=== PATIENT | male | born 1965 | race Caucasian/White ===

== ENCOUNTER 2020-05-03 13:29 | Inpatient (IN) ==
[2020-05-03 13:55] LABS: Basophils % 0.4 %; Eosinophils # 0.1 K/mcL (0.0-0.6); Eosinophils % 0.8 %; Hematocrit 40.1 % (37.5-50.1); Hemoglobin 12.4 g/dL (12.9-16.9); Immature Granulocytes % 0.6 % (0-4); Lymphocytes # 0.9 K/mcL (0.6-4.6); Lymphocytes % 8.6 %; Mean Corpuscular HGB Conc 30.9 g/dL (31.6-35.5); Mean Corpuscular Hemoglobin 27.1 pg (28.0-33.3); Mean Corpuscular Volume 87.7 fL (83.0-100.0); Mean Platelet Volume 9.9 fL (9.4-12.4); Monocytes # 0.6 K/mcL (0.0-1.3); Monocytes % 5.6 %; Neutrophils # 8.3 K/mcL (1.6-8.9); Platelet Count 250 K/mcL (140-400); Red Blood Count 4.57 M/mcL (4.19-5.50); Red Cell Distribution Width 15.9 % (11.5-14.5); White Blood Count 9.9 K/mcL (4.3-11.1)
[2020-05-03 14:00] LABS: INR 1.7; Prothrombin Time 19.1 Seconds (9.4-12.1)
[2020-05-03] MEDS ORDERED: Nitroglycerin 1 INCH/GM PACKET TP ONE (14:08)
[2020-05-03 14:31] LABS: Alanine Aminotransferase 25 Units/L (7-52); Albumin 3.6 g/dL (3.5-5.7); Albumin/Globulin Ratio 1.1 (1.1-2.2); Alkaline Phosphatase 88 Units/L (34-104); Aspartate Amino Transferase 14 Units/L (13-39); BUN/Creatinine Ratio 24 (6-26); Bilirubin,Direct 0.1 mg/dL (0.0-0.2); Bilirubin,Indirect 0.2 mg/dL (0.0-1.0); Bilirubin,Total 0.3 mg/dL (0.3-1.0); Blood Urea Nitrogen 28 mg/dL (6-20); Calcium 8.8 mg/dL (8.6-10.3); Carbon Dioxide 29 mEq/L (23-29); Chloride 100 mEq/L (98-107); Globulin 3.2 g/dL (2.4-3.5); Glucose 202 mg/dL (70-105); Osmolality,Calculated 295 (280-300); Potassium 4.2 mEq/L (3.5-5.1); Sodium 137 mEq/L (136-145); Total Protein 6.8 g/dL (6.4-8.9); Troponin I < 0.03 ng/mL (< 0.04); eGFR For African Americans > 60 (> 60); eGFR For Non-African Americans > 60 (> 60)
[2020-05-03] MEDS ORDERED: Furosemide 40 MG/4 ML VIAL IVP ONE ×2 (14:33→18:00)
[2020-05-03] MEDS ORDERED: Naloxone 0.4 MG/ML INJ IVP PRN (15:47)
[2020-05-03] MEDS ORDERED: Dextrose Gel 15 GM/37.5 ML TUBE PO PRN ×2 (16:54)
[2020-05-03] MEDS ORDERED: *HR* Dextrose 50 % in Water (Vial) 50 ML VIAL IVP PRN (16:54)
[2020-05-03] MEDS ORDERED: D5% in Water 1,000 ML IVC PRN (16:54)
[2020-05-03] MEDS ORDERED: *HR* Warfarin 10 MG TABLET PO SCH (18:00)
[2020-05-03] MEDS: Insulin LISPRO 300 UNITS/3 ML VIAL SQ SCH (20:02)
[2020-05-03] MEDS: cloNIDine HCL 0.1 MG TABLET PO SCH (20:02)
[2020-05-03] MEDS: Budesonide/Formoterol 160/4.5 1 PUFF INH IH SCH (20:05)
[2020-05-04 03:57] LABS: Basophils % 0.4 %; Eosinophils # 0.2 K/mcL (0.0-0.6); Eosinophils % 1.8 %; Hematocrit 40.3 % (37.5-50.1); Hemoglobin 12.6 g/dL (12.9-16.9); Immature Granulocytes % 0.5 % (0-4); Lymphocytes # 1.1 K/mcL (0.6-4.6); Mean Corpuscular HGB Conc 31.3 g/dL (31.6-35.5); Mean Corpuscular Hemoglobin 27.2 pg (28.0-33.3); Mean Platelet Volume 9.8 fL (9.4-12.4); Monocytes # 0.7 K/mcL (0.0-1.3); Monocytes % 7.8 %; Neutrophils # 7.1 K/mcL (1.6-8.9); Platelet Count 256 K/mcL (140-400); Red Blood Count 4.63 M/mcL (4.19-5.50); Red Cell Distribution Width 16.1 % (11.5-14.5); Segmented Neutrophils % 77.5 %; White Blood Count 9.2 K/mcL (4.3-11.1)
[2020-05-04 04:16] LABS: BUN/Creatinine Ratio 22 (6-26); Blood Urea Nitrogen 29 mg/dL (6-20); Calcium 8.9 mg/dL (8.6-10.3); Carbon Dioxide 31 mEq/L (23-29); Chloride 100 mEq/L (98-107); Glucose 214 mg/dL (70-105); Osmolality,Calculated 298 (280-300); Potassium 3.9 mEq/L (3.5-5.1); Sodium 138 mEq/L (136-145); eGFR For African Americans > 60 (> 60); eGFR For Non-African Americans 57 (> 60)
[2020-05-04] MEDS: Budesonide/Formoterol 160/4.5 1 PUFF INH IH SCH ×2 (07:28→20:24)
[2020-05-04] MEDS: Insulin LISPRO 300 UNITS/3 ML VIAL SQ SCH ×4 (08:03→20:37)
[2020-05-04] MEDS: cloNIDine HCL 0.1 MG TABLET PO SCH ×2 (08:03→20:37)
[2020-05-04] MEDS ORDERED: Furosemide 40 MG/4 ML VIAL IVP SCH (09:00)
[2020-05-04 10:41] LABS: INR 1.8; Prothrombin Time 20.8 Seconds (9.4-12.1)
[2020-05-04] MEDS: Furosemide 40 MG/4 ML VIAL IVP SCH (16:18)
[2020-05-04] MEDS ORDERED: *HR* Warfarin 4 MG TABLET PO ONE (18:00)
[2020-05-04] MEDS ORDERED: Anticoagulation Consult 1 Each MC ONE (18:00)
[2020-05-04] MEDS ORDERED: Warfarin perPT PO PRN (18:00)
[2020-05-05 02:25] LABS: Prothrombin Time 22.4 Seconds (9.4-12.1)
[2020-05-05 02:41] LABS: BUN/Creatinine Ratio 25 (6-26); Blood Urea Nitrogen 35 mg/dL (6-20); Calcium 8.4 mg/dL (8.6-10.3); Carbon Dioxide 30 mEq/L (23-29); Chloride 102 mEq/L (98-107); Glucose 165 mg/dL (70-105); Osmolality,Calculated 302 (280-300); Potassium 3.8 mEq/L (3.5-5.1); Sodium 140 mEq/L (136-145); eGFR For African Americans > 60 (> 60); eGFR For Non-African Americans 52 (> 60)
[2020-05-05] MEDS: cloNIDine HCL 0.1 MG TABLET PO SCH ×2 (07:43→22:01)
[2020-05-05] MEDS: Furosemide 40 MG/4 ML VIAL IVP SCH ×2 (07:43→17:30)
[2020-05-05] MEDS: Insulin LISPRO 300 UNITS/3 ML VIAL SQ SCH ×4 (07:43→22:03)
[2020-05-05] MEDS: Budesonide/Formoterol 160/4.5 1 PUFF INH IH SCH ×2 (08:00→22:30)
[2020-05-05] MEDS ORDERED: Perflutren Lipid Microsphere 1.3 ML in 0.9 % Sodium Chloride 8.7 ML IVP ONE ×2 (09:31→20:52)
[2020-05-05] MEDS ORDERED: *HR* Warfarin 10 MG TABLET PO ONE (18:00)
[2020-05-06 06:17] LABS: INR 2.2; Prothrombin Time 24.7 Seconds (9.4-12.1)
[2020-05-06 06:24] LABS: Calcium 8.8 mg/dL (8.6-10.3); Potassium 3.9 mEq/L (3.5-5.1)
[2020-05-06] MEDS: cloNIDine HCL 0.1 MG TABLET PO SCH (07:20)
[2020-05-06] MEDS: Insulin LISPRO 300 UNITS/3 ML VIAL SQ SCH ×2 (07:21→11:57)
[2020-05-06] MEDS: Furosemide 40 MG/4 ML VIAL IVP SCH (07:21)
[2020-05-06] MEDS: Budesonide/Formoterol 160/4.5 1 PUFF INH IH SCH (08:03)
[2020-05-06] MEDS ORDERED: amLODIPine 5 MG TABLET PO SCH (09:00)
[2020-05-06] MEDS ORDERED: Tiotropium 18 MCG inhalation IH SCH (10:00)
[2020-05-06 11:07] VITALS: BP 171/91
[2020-05-06] MEDS ORDERED: *HR* Warfarin 10 MG TABLET PO ONE (18:00)
== END 2020-05-06 16:03 | disposition home or self-care (01) | DRG 291 ==
LOC: 2ANU 13:29 → EMEROOARM 13:29 → SUATTDRO 17:30 → 2ANU 17:55
PROVIDERS: ADMIT Internal Medicine; ATTEND Internal Medicine

== ENCOUNTER 2021-04-29 22:10 | Inpatient (IN) ==
[2021-04-29] MEDS ORDERED: Isovue-370 500 ML BOTTLE IVP ONE (23:06)
[2021-04-29] MEDS ORDERED: Furosemide 40 MG/4 ML VIAL IVP ONE (23:07)
[2021-04-29] MEDS ORDERED: methylPREDNISolone 125 MG/2 ML VIAL IVP ONE (23:07)
[2021-04-29] MEDS ORDERED: Ipratropium/Albuterol Neb 3 ML ONE (23:30)
[2021-04-29] MEDS: Ipratropium/Albuterol Neb 3 ML IH ONE ×2 (23:33→23:35)
[2021-04-30 00:52] LABS: Basophils # 0.1 K/mcL (0.0-0.2); Basophils % 0.6 %; Eosinophils # 0.1 K/mcL (0.0-0.6); Eosinophils % 1.2 %; Hemoglobin 11.6 g/dL (12.9-16.9); Immature Granulocytes % 0.7 % (0-4); Lymphocytes # 1.4 K/mcL (0.6-4.6); Lymphocytes % 12.4 %; Mean Corpuscular HGB Conc 30.5 g/dL (31.6-35.5); Mean Corpuscular Hemoglobin 26.3 pg (28.0-33.3); Mean Corpuscular Volume 86.2 fL (83.0-100.0); Mean Platelet Volume 9.8 fL (9.4-12.4); Monocytes # 0.8 K/mcL (0.0-1.3); Monocytes % 6.9 %; Platelet Count 308 K/mcL (140-400); Red Blood Count 4.41 M/mcL (4.19-5.50); Red Cell Distribution Width 16.2 % (11.5-14.5); Segmented Neutrophils % 78.2 %; White Blood Count 11.6 K/mcL (4.3-11.1)
[2021-04-30 00:59] LABS: INR 2.1; Prothrombin Time 24.1 Seconds (9.4-12.1)
[2021-04-30 01:01] LABS: BUN/Creatinine Ratio 24 (6-26); Blood Urea Nitrogen 39 mg/dL (6-20); Carbon Dioxide 25 mEq/L (23-29); Chloride 102 mEq/L (98-107); Glucose 200 mg/dL (70-105); Osmolality,Calculated 305 (280-300); Potassium 4.2 mEq/L (3.5-5.1); Sodium 140 mEq/L (136-145); eGFR For African Americans 54 (> 60); eGFR For Non-African Americans 44 (> 60)
[2021-04-30 01:02] LABS: Troponin I < 0.03 ng/mL (< 0.04)
[2021-04-30] MEDS ORDERED: Azithromycin 500 MG in 0.9 % Sodium Chloride 250 ML IVPB STA (02:51)
[2021-04-30] MEDS ORDERED: Perflutren Lipid Microsphere 1.3 ML in 0.9 % Sodium Chloride 8.7 ML IVP PRN (04:53)
[2021-04-30] MEDS ORDERED: Albuterol 2.5 MG/3 ML NEBULIZER IH PRN (04:58)
[2021-04-30] MEDS ORDERED: Ondansetron 4 MG/2 ML VIAL IVP PRN (05:04)
[2021-04-30] MEDS ORDERED: Acetaminophen 325 MG TABLET PO PRN (05:04)
[2021-04-30] MEDS ORDERED: Melatonin 3 MG TABLET PO PRN (05:04)
[2021-04-30] MEDS ORDERED: Naloxone 0.4 MG/ML INJ IVP PRN (05:04)
[2021-04-30] MEDS ORDERED: D5% in Water 1,000 ML IVC PRN (05:07)
[2021-04-30] MEDS ORDERED: *HR* Dextrose 50 % in Water (Vial) 50 ML VIAL IVP PRN (05:07)
[2021-04-30] MEDS ORDERED: Dextrose Gel 15 GM/37.5 ML TUBE PO PRN ×2 (05:07)
[2021-04-30] MEDS ORDERED: Albuterol 2.5 MG/3 ML NEBULIZER IH SCH (08:00)
[2021-04-30] MEDS: amLODIPine 5 MG TABLET PO SCH (08:56)
[2021-04-30] MEDS: predniSONE 20 MG TABLET PO SCH (08:56)
[2021-04-30] MEDS: Furosemide 40 MG/4 ML VIAL IVP SCH (08:56)
[2021-04-30] MEDS: Azithromycin 250 MG TABLET PO SCH (08:56)
[2021-04-30] MEDS: Insulin LISPRO 300 UNITS/3 ML VIAL SUBQ SCH ×3 (09:47→16:38)
[2021-04-30] MEDS: Ipratropium/Albuterol Neb 3 ML IH SCH ×3 (11:47→20:28)
[2021-04-30] MEDS ORDERED: lisinopriL 20 MG TABLET PO SCH (15:30)
[2021-04-30] MEDS ORDERED: Warfarin perPT PO PRN (18:00)
[2021-04-30] MEDS ORDERED: *HR* Warfarin 10 MG TABLET PO ONE (18:00)
[2021-04-30] MEDS: Budesonide/Formoterol 160/4.5 1 PUFF INH IH SCH (20:27)
[2021-04-30] MEDS ORDERED: Insulin LISPRO 300 UNITS/3 ML VIAL SUBQ SCH (21:00)
[2021-04-30] MEDS ORDERED: *HR* Metoprolol 5 MG/5 ML VIAL IVP ONE (23:57)
[2021-05-01 02:15] LABS: Basophils % 0.1 %; Hematocrit 38.2 % (37.5-50.1); Immature Granulocytes % 0.9 % (0-4); Lymphocytes # 0.9 K/mcL (0.6-4.6); Lymphocytes % 6.5 %; Mean Corpuscular HGB Conc 31.4 g/dL (31.6-35.5); Mean Corpuscular Hemoglobin 26.5 pg (28.0-33.3); Mean Corpuscular Volume 84.3 fL (83.0-100.0); Mean Platelet Volume 10.4 fL (9.4-12.4); Monocytes # 1.1 K/mcL (0.0-1.3); Monocytes % 7.5 %; Platelet Count 325 K/mcL (140-400); Red Blood Count 4.53 M/mcL (4.19-5.50); Red Cell Distribution Width 16.1 % (11.5-14.5); White Blood Count 14.1 K/mcL (4.3-11.1)
[2021-05-01 02:37] LABS: Potassium 4.2 mEq/L (3.5-5.1)
[2021-05-01] MEDS: Ipratropium/Albuterol Neb 3 ML IH SCH ×4 (03:41→22:54)
[2021-05-01] MEDS: Insulin LISPRO 300 UNITS/3 ML VIAL SUBQ SCH ×5 (07:49→20:21)
[2021-05-01] MEDS: Azithromycin 250 MG TABLET PO SCH (07:50)
[2021-05-01] MEDS: Furosemide 40 MG/4 ML VIAL IVP SCH (07:50)
[2021-05-01] MEDS: amLODIPine 5 MG TABLET PO SCH (07:50)
[2021-05-01] MEDS: predniSONE 20 MG TABLET PO SCH (07:50)
[2021-05-01] MEDS: Multivit/Ca/Min/Fe/FA 1 TAB TABLET PO SCH (07:50)
[2021-05-01] MEDS: DilTIAZem CD (24hr) 120 MG CAP.ER.24H PO SCH (07:50)
[2021-05-01] MEDS ORDERED: NON-FORMULARY MEDICATION 1 EACH EACH (Amlodipine Besylate/Benazepril [Amlodipine-Benazepri PO SCH (09:00)
[2021-05-01] MEDS: Budesonide/Formoterol 160/4.5 1 PUFF INH IH SCH ×2 (09:46→22:54)
[2021-05-01] MEDS ORDERED: *HR* Warfarin 10 MG TABLET PO ONE (18:00)
[2021-05-02] MEDS: Ipratropium/Albuterol Neb 3 ML IH SCH ×4 (04:18→22:13)
[2021-05-02 04:42] LABS: Basophils # 0.1 K/mcL (0.0-0.2); Basophils % 0.4 %; Eosinophils # 0.3 K/mcL (0.0-0.6); Eosinophils % 2.7 %; Hematocrit 38.2 % (37.5-50.1); Hemoglobin 12.2 g/dL (12.9-16.9); Immature Granulocytes % 0.5 % (0-4); Lymphocytes # 1.7 K/mcL (0.6-4.6); Lymphocytes % 13.5 %; Mean Corpuscular HGB Conc 31.9 g/dL (31.6-35.5); Mean Corpuscular Hemoglobin 26.8 pg (28.0-33.3); Mean Platelet Volume 9.8 fL (9.4-12.4); Monocytes % 7.9 %; Neutrophils # 9.5 K/mcL (1.6-8.9); Platelet Count 330 K/mcL (140-400); Red Blood Count 4.55 M/mcL (4.19-5.50); Red Cell Distribution Width 16.5 % (11.5-14.5); White Blood Count 12.6 K/mcL (4.3-11.1)
[2021-05-02 04:52] LABS: INR 2.3; Prothrombin Time 25.9 Seconds (9.4-12.1)
[2021-05-02 05:03] LABS: Albumin 3.5 g/dL (3.5-5.7); Calcium 8.9 mg/dL (8.6-10.3); Magnesium 2.3 mg/dL (1.6-2.6); Phosphorous 4.8 mg/dL (2.7-4.5)
[2021-05-02 07:12] LABS: Estimated Average Glucose 177 mg/dl; Hemoglobin A1C 7.8 %
[2021-05-02] MEDS: Azithromycin 250 MG TABLET PO SCH (08:22)
[2021-05-02] MEDS: Multivit/Ca/Min/Fe/FA 1 TAB TABLET PO SCH (08:23)
[2021-05-02] MEDS: amLODIPine 5 MG TABLET PO SCH (08:23)
[2021-05-02] MEDS: DilTIAZem CD (24hr) 120 MG CAP.ER.24H PO SCH (08:23)
[2021-05-02] MEDS: predniSONE 20 MG TABLET PO SCH (08:23)
[2021-05-02] MEDS: Insulin LISPRO 300 UNITS/3 ML VIAL SUBQ SCH ×4 (08:26→23:25)
[2021-05-02] MEDS: Budesonide/Formoterol 160/4.5 1 PUFF INH IH SCH ×2 (09:21→22:13)
[2021-05-02] MEDS ORDERED: 0.9 % Sodium Chloride 1,000 ML IVC SCH (14:45)
[2021-05-02] MEDS ORDERED: *HR* Warfarin 10 MG TABLET PO ONE (18:00)
[2021-05-02] MEDS: Insulin DETEMIR 100 UNIT/ML X5UNITS SUBQ SCH (23:24)
[2021-05-03] MEDS: Ipratropium/Albuterol Neb 3 ML IH SCH ×4 (04:36→21:59)
[2021-05-03 06:05] LABS: INR 2.2; Prothrombin Time 25.4 Seconds (9.4-12.1)
[2021-05-03 06:20] LABS: Calcium 8.6 mg/dL (8.6-10.3); Potassium 3.8 mEq/L (3.5-5.1)
[2021-05-03] MEDS: DilTIAZem CD (24hr) 120 MG CAP.ER.24H PO SCH (08:14)
[2021-05-03] MEDS: amLODIPine 5 MG TABLET PO SCH (08:14)
[2021-05-03] MEDS: Azithromycin 250 MG TABLET PO SCH (08:14)
[2021-05-03] MEDS: Multivit/Ca/Min/Fe/FA 1 TAB TABLET PO SCH (08:14)
[2021-05-03] MEDS: predniSONE 20 MG TABLET PO SCH (08:15)
[2021-05-03] MEDS: Insulin LISPRO 300 UNITS/3 ML VIAL SUBQ SCH ×4 (08:17→20:44)
[2021-05-03] MEDS: Budesonide/Formoterol 160/4.5 1 PUFF INH IH SCH ×2 (10:48→21:59)
[2021-05-03] MEDS ORDERED: *HR* Warfarin 5 MG TABLET PO ONE (18:00)
[2021-05-03] MEDS ORDERED: *HR* Metoprolol 5 MG/5 ML VIAL IVP ONE ×3 (18:39→21:29)
[2021-05-03] MEDS: Insulin DETEMIR 100 UNIT/ML X5UNITS SUBQ SCH (20:44)
[2021-05-04] MEDS ORDERED: *HR* Metoprolol 5 MG/5 ML VIAL IVP ONE ×2 (01:19→04:10)
[2021-05-04] MEDS: Ipratropium/Albuterol Neb 3 ML IH SCH ×2 (04:12→09:52)
[2021-05-04] MEDS: amLODIPine 5 MG TABLET PO SCH (07:37)
[2021-05-04] MEDS: Multivit/Ca/Min/Fe/FA 1 TAB TABLET PO SCH (07:37)
[2021-05-04] MEDS: DilTIAZem CD (24hr) 120 MG CAP.ER.24H PO SCH (07:38)
[2021-05-04] MEDS: Azithromycin 250 MG TABLET PO SCH (07:38)
[2021-05-04] MEDS: predniSONE 20 MG TABLET PO SCH (07:38)
[2021-05-04] MEDS: Insulin LISPRO 300 UNITS/3 ML VIAL SUBQ SCH ×4 (07:39→21:38)
[2021-05-04] MEDS: Budesonide/Formoterol 160/4.5 1 PUFF INH IH SCH ×2 (09:52→20:16)
[2021-05-04 10:21] LABS: Basophils % 0.3 %; Eosinophils % 8.7 %; Hematocrit 43.2 % (37.5-50.1); Hemoglobin 13.6 g/dL (12.9-16.9); Immature Granulocytes % 0.5 % (0-4); Lymphocytes # 0.7 K/mcL (0.6-4.6); Lymphocytes % 6.3 %; Mean Corpuscular HGB Conc 31.5 g/dL (31.6-35.5); Mean Corpuscular Hemoglobin 26.8 pg (28.0-33.3); Mean Corpuscular Volume 85.2 fL (83.0-100.0); Mean Platelet Volume 9.5 fL (9.4-12.4); Monocytes # 0.5 K/mcL (0.0-1.3); Monocytes % 4.4 %; Neutrophils # 9.4 K/mcL (1.6-8.9); Platelet Count 320 K/mcL (140-400); Red Blood Count 5.07 M/mcL (4.19-5.50); Red Cell Distribution Width 16.5 % (11.5-14.5); Segmented Neutrophils % 79.8 %; White Blood Count 11.8 K/mcL (4.3-11.1)
[2021-05-04 10:27] LABS: INR 2.1; Prothrombin Time 24.3 Seconds (9.4-12.1)
[2021-05-04 10:40] LABS: Calcium 8.8 mg/dL (8.6-10.3); Potassium 4.2 mEq/L (3.5-5.1)
[2021-05-04] MEDS ORDERED: Ipratropium/Albuterol Neb 3 ML IH PRN (13:06)
[2021-05-04] MEDS: Metoprolol XL (24 HR) Succ 25 MG TAB.ER.24H PO SCH ×2 (15:30→21:38)
[2021-05-04] MEDS ORDERED: Furosemide 40 MG TABLET PO SCH (17:00)
[2021-05-04] MEDS ORDERED: *HR* Warfarin 10 MG TABLET PO ONE (18:00)
[2021-05-04] MEDS ORDERED: Metoprolol XL (24 HR) Succ 25 MG TAB.ER.24H PO SCH (21:00)
[2021-05-04] MEDS: Insulin DETEMIR 100 UNIT/ML X5UNITS SUBQ SCH (21:39)
[2021-05-05 02:03] LABS: Prothrombin Time 22.6 Seconds (9.4-12.1)
[2021-05-05] MEDS: Budesonide/Formoterol 160/4.5 1 PUFF INH IH SCH (07:49)
[2021-05-05] MEDS: Insulin LISPRO 300 UNITS/3 ML VIAL SUBQ SCH (07:49)
[2021-05-05] MEDS: DilTIAZem CD (24hr) 120 MG CAP.ER.24H PO SCH (08:09)
[2021-05-05] MEDS: Metoprolol XL (24 HR) Succ 25 MG TAB.ER.24H PO SCH (08:09)
[2021-05-05] MEDS: amLODIPine 5 MG TABLET PO SCH (08:10)
[2021-05-05] MEDS: Multivit/Ca/Min/Fe/FA 1 TAB TABLET PO SCH (08:10)
[2021-05-05] MEDS ORDERED: predniSONE 20 MG TABLET PO SCH (09:00)
[2021-05-05 10:14] VITALS: BP 159/88
== END 2021-05-05 11:07 | disposition home or self-care (01) | DRG 291 ==
LOC: EMEROOARM 22:10 → 3BNU 22:10 → SUATTDRO 04-30 02:56 → 3BNU 04-30 03:28 → SUATTDRO 05-02 14:35
PROVIDERS: ADMIT Family Medicine; ATTEND Nurse Practitioner

== ENCOUNTER 2021-06-26 18:52 | Inpatient (IN) ==
[2021-06-26 21:42] LABS: Basophils % 0.3 %; Hematocrit 38.8 % (37.5-50.1); Hemoglobin 12.2 g/dL (12.9-16.9); Immature Granulocytes % 0.9 % (0-4); Lymphocytes # 0.7 K/mcL (0.6-4.6); Lymphocytes % 10.2 %; Mean Corpuscular HGB Conc 31.4 g/dL (31.6-35.5); Mean Corpuscular Volume 82.7 fL (83.0-100.0); Monocytes # 0.7 K/mcL (0.0-1.3); Monocytes % 10.1 %; Neutrophils # 5.4 K/mcL (1.6-8.9); Platelet Count 272 K/mcL (140-400); Red Blood Count 4.69 M/mcL (4.19-5.50); Red Cell Distribution Width 16.4 % (11.5-14.5); Segmented Neutrophils % 78.5 %; White Blood Count 6.8 K/mcL (4.3-11.1)
[2021-06-26 21:58] LABS: BUN/Creatinine Ratio 33 (6-26); Blood Urea Nitrogen 48 mg/dL (6-20); Calcium 8.9 mg/dL (8.6-10.3); Carbon Dioxide 27 mEq/L (23-29); Chloride 100 mEq/L (98-107); Glucose 309 mg/dL (70-105); Osmolality,Calculated 306 (280-300); Sodium 136 mEq/L (136-145); eGFR For African Americans > 60 (> 60); eGFR For Non-African Americans 50 (> 60)
[2021-06-26] MEDS ORDERED: Isovue-370 500 ML BOTTLE IVP ONE (23:35)
[2021-06-27] MEDS ORDERED: Naloxone 0.4 MG/ML INJ IVP PRN (02:30)
[2021-06-27] MEDS ORDERED: Ondansetron 4 MG/2 ML VIAL IVP PRN (02:30)
[2021-06-27] MEDS ORDERED: Melatonin 3 MG TABLET PO PRN (02:30)
[2021-06-27] MEDS ORDERED: *HR* HYDROcodone/Acet 5/325 mg TABLET PO PRN (02:30)
[2021-06-27] MEDS ORDERED: Dextrose Gel 15 GM/37.5 ML TUBE PO PRN ×2 (02:35)
[2021-06-27] MEDS ORDERED: *HR* Dextrose 50 % in Water (Vial) 50 ML VIAL IVP PRN (02:35)
[2021-06-27] MEDS ORDERED: D5% in Water 1,000 ML IVC PRN (02:35)
[2021-06-27 05:14] LABS: Basophils % 0.3 %; Eosinophils % 0.1 %; Hematocrit 38.1 % (37.5-50.1); Hemoglobin 11.8 g/dL (12.9-16.9); Immature Granulocytes % 0.7 % (0-4); Lymphocytes % 11.1 %; Mean Corpuscular Hemoglobin 25.9 pg (28.0-33.3); Mean Corpuscular Volume 83.7 fL (83.0-100.0); Mean Platelet Volume 9.8 fL (9.4-12.4); Monocytes # 0.8 K/mcL (0.0-1.3); Monocytes % 9.4 %; Neutrophils # 6.8 K/mcL (1.6-8.9); Platelet Count 270 K/mcL (140-400); Red Blood Count 4.55 M/mcL (4.19-5.50); Red Cell Distribution Width 16.3 % (11.5-14.5); Segmented Neutrophils % 78.4 %; White Blood Count 8.6 K/mcL (4.3-11.1)
[2021-06-27 05:23] LABS: Fibrinogen 501 mg/dL (169-393); INR 2.2; Prothrombin Time 25.4 Seconds (9.4-12.1)
[2021-06-27 05:24] LABS: D-Dimer < 215 ng/mLFEU (0-500)
[2021-06-27 05:53] LABS: Alanine Aminotransferase 32 Units/L (7-52); Albumin 3.3 g/dL (3.5-5.7); Albumin/Globulin Ratio 1.3 (1.1-2.2); Alkaline Phosphatase 68 Units/L (34-104); Aspartate Amino Transferase 18 Units/L (13-39); BUN/Creatinine Ratio 30 (6-26); Bilirubin,Total 0.2 mg/dL (0.3-1.0); Blood Urea Nitrogen 43 mg/dL (6-20); C-Reactive Protein 21 mg/L (Less than 10); Calcium 8.9 mg/dL (8.6-10.3); Carbon Dioxide 32 mEq/L (23-29); Chloride 100 mEq/L (98-107); Globulin 2.6 g/dL (2.4-3.5); Glucose 151 mg/dL (70-105); Lactate Dehydrogenase 141 Units/L (140-271); Magnesium 1.6 mg/dL (1.6-2.6); Osmolality,Calculated 302 (280-300); Phosphorous 4.3 mg/dL (2.7-4.5); Potassium 3.7 mEq/L (3.5-5.1); Sodium 139 mEq/L (136-145); Total Protein 5.9 g/dL (6.4-8.9); eGFR For African Americans > 60 (> 60); eGFR For Non-African Americans 51 (> 60)
[2021-06-27 06:08] LABS: Ferritin 58 ng/mL (20-250)
[2021-06-27] MEDS: Metoprolol XL (24 HR) Succ 25 MG TAB.ER.24H PO SCH ×2 (08:00→20:36)
[2021-06-27] MEDS: DilTIAZem CD (24hr) 120 MG CAP.ER.24H PO SCH (08:00)
[2021-06-27] MEDS: Insulin LISPRO 300 UNITS/3 ML VIAL SUBQ SCH ×4 (08:01→20:39)
[2021-06-27] MEDS: Roflumilast [Daliresp] 500 MCG PO SCH (08:01)
[2021-06-27] MEDS: Budesonide/Formoterol 160/4.5 1 PUFF INH IH SCH ×2 (08:16→21:40)
[2021-06-27] MEDS: Tiotropium 10 INH DOSE IH SCH (08:16)
[2021-06-27] MEDS ORDERED: Remdesivir 200 MG in 0.9 % Sodium Chloride 100 ML IVPB ONE (11:22)
[2021-06-27] MEDS: amLODIPine 5 MG TABLET PO SCH (13:17)
[2021-06-27] MEDS ORDERED: *HR* Warfarin 5 MG TABLET PO ONE (18:00)
[2021-06-27] MEDS ORDERED: Warfarin perPT PO PRN (18:00)
[2021-06-27] MEDS: Insulin DETEMIR 100 UNIT/ML X5UNITS SUBQ SCH (20:36)
[2021-06-28] MEDS ORDERED: Furosemide 40 MG/4 ML VIAL IVP ONE (05:01)
[2021-06-28 06:49] LABS: INR 2.2; Prothrombin Time 24.7 Seconds (9.4-12.1)
[2021-06-28] MEDS: Metoprolol XL (24 HR) Succ 25 MG TAB.ER.24H PO SCH (07:26)
[2021-06-28] MEDS: lisinopriL 20 MG TABLET PO SCH (07:26)
[2021-06-28] MEDS: Insulin LISPRO 300 UNITS/3 ML VIAL SUBQ SCH ×4 (07:26→21:30)
[2021-06-28] MEDS: Furosemide 40 MG TABLET PO SCH (07:27)
[2021-06-28] MEDS: amLODIPine 5 MG TABLET PO SCH (07:27)
[2021-06-28] MEDS: Roflumilast [Daliresp] 500 MCG PO SCH (07:27)
[2021-06-28] MEDS: DilTIAZem CD (24hr) 120 MG CAP.ER.24H PO SCH (07:28)
[2021-06-28] MEDS ORDERED: carvediloL 25 MG TABLET PO SCH (08:00)
[2021-06-28] MEDS: Tiotropium 10 INH DOSE IH SCH (08:30)
[2021-06-28] MEDS: Budesonide/Formoterol 160/4.5 1 PUFF INH IH SCH ×2 (08:30→23:08)
[2021-06-28 11:40] LABS: Hematocrit 41.9 % (37.5-50.1); Hemoglobin 12.9 g/dL (12.9-16.9); Mean Corpuscular HGB Conc 30.8 g/dL (31.6-35.5); Mean Corpuscular Hemoglobin 25.7 pg (28.0-33.3); Mean Corpuscular Volume 83.6 fL (83.0-100.0); Mean Platelet Volume 9.7 fL (9.4-12.4); Platelet Count 283 K/mcL (140-400); Red Blood Count 5.01 M/mcL (4.19-5.50); Red Cell Distribution Width 16.3 % (11.5-14.5); White Blood Count 8.3 K/mcL (4.3-11.1)
[2021-06-28] MEDS: Remdesivir 100 MG in 0.9 % Sodium Chloride 100 ML IVPB SCH (11:59)
[2021-06-28 12:01] LABS: Albumin 3.4 g/dL (3.5-5.7); Albumin/Globulin Ratio 1.2 (1.1-2.2); Bilirubin,Indirect 0.3 mg/dL (0.0-1.0); Bilirubin,Total 0.3 mg/dL (0.3-1.0); Calcium 8.8 mg/dL (8.6-10.3); Globulin 2.9 g/dL (2.4-3.5); Potassium 4.1 mEq/L (3.5-5.1); Total Protein 6.3 g/dL (6.4-8.9)
[2021-06-28] MEDS ORDERED: *HR* Warfarin 10 MG TABLET PO ONE (18:00)
[2021-06-28] MEDS: *HR* GlipiZIDE XL (24 HR) 10 MG TABLET PO SCH (18:14)
[2021-06-28] MEDS: carvediloL 25 MG TABLET PO SCH (18:15)
[2021-06-28] MEDS: Insulin DETEMIR 100 UNIT/ML X5UNITS SUBQ SCH (21:30)
[2021-06-29 08:23] LABS: INR 2.1; Prothrombin Time 23.7 Seconds (9.4-12.1)
[2021-06-29 08:42] LABS: Albumin 3.2 g/dL (3.5-5.7); Albumin/Globulin Ratio 1.1 (1.1-2.2); Bilirubin,Direct 0.1 mg/dL (0.0-0.2); Bilirubin,Indirect 0.2 mg/dL (0.0-1.0); Bilirubin,Total 0.3 mg/dL (0.3-1.0); Globulin 2.8 g/dL (2.4-3.5)
[2021-06-29] MEDS: Insulin LISPRO 300 UNITS/3 ML VIAL SUBQ SCH ×4 (09:45→20:55)
[2021-06-29] MEDS: amLODIPine 5 MG TABLET PO SCH (10:44)
[2021-06-29] MEDS: Furosemide 40 MG TABLET PO SCH (10:44)
[2021-06-29] MEDS: *HR* GlipiZIDE XL (24 HR) 10 MG TABLET PO SCH ×2 (10:44→17:14)
[2021-06-29] MEDS: lisinopriL 20 MG TABLET PO SCH (10:44)
[2021-06-29] MEDS: carvediloL 25 MG TABLET PO SCH ×2 (10:45→17:13)
[2021-06-29] MEDS: DilTIAZem CD (24hr) 120 MG CAP.ER.24H PO SCH (10:45)
[2021-06-29] MEDS: Roflumilast [Daliresp] 500 MCG PO SCH (10:45)
[2021-06-29] MEDS: Remdesivir 100 MG in 0.9 % Sodium Chloride 100 ML IVPB SCH (11:13)
[2021-06-29] MEDS: Acetaminophen 325 MG TABLET PO PRN (11:14)
[2021-06-29] MEDS: Tiotropium 10 INH DOSE IH SCH (11:37)
[2021-06-29] MEDS: Budesonide/Formoterol 160/4.5 1 PUFF INH IH SCH ×2 (11:37→20:11)
[2021-06-29] MEDS ORDERED: *HR* Warfarin 5 MG TABLET PO ONE (18:00)
[2021-06-29] MEDS: Insulin DETEMIR 100 UNIT/ML X5UNITS SUBQ SCH (20:57)
[2021-06-30 01:56] LABS: Hematocrit 40.3 % (37.5-50.1); Hemoglobin 12.2 g/dL (12.9-16.9); Mean Corpuscular HGB Conc 30.3 g/dL (31.6-35.5); Mean Corpuscular Hemoglobin 26.2 pg (28.0-33.3); Mean Corpuscular Volume 86.5 fL (83.0-100.0); Mean Platelet Volume 9.7 fL (9.4-12.4); Platelet Count 254 K/mcL (140-400); Red Blood Count 4.66 M/mcL (4.19-5.50); Red Cell Distribution Width 16.7 % (11.5-14.5); White Blood Count 6.1 K/mcL (4.3-11.1)
[2021-06-30 02:03] LABS: Prothrombin Time 22.7 Seconds (9.4-12.1)
[2021-06-30 02:17] LABS: Albumin 2.9 g/dL (3.5-5.7); Albumin/Globulin Ratio 0.9 (1.1-2.2); Bilirubin,Direct 0.2 mg/dL (0.0-0.2); Bilirubin,Total 0.2 mg/dL (0.3-1.0); Globulin 3.4 g/dL (2.4-3.5); Total Protein 6.3 g/dL (6.4-8.9)
[2021-06-30 02:19] LABS: Calcium 8.2 mg/dL (8.6-10.3); Potassium 4.6 mEq/L (3.5-5.1)
[2021-06-30] MEDS: Budesonide/Formoterol 160/4.5 1 PUFF INH IH SCH ×2 (07:56→20:20)
[2021-06-30] MEDS: Tiotropium 10 INH DOSE IH SCH (07:56)
[2021-06-30] MEDS: Insulin LISPRO 300 UNITS/3 ML VIAL SUBQ SCH ×4 (09:21→21:25)
[2021-06-30] MEDS: lisinopriL 20 MG TABLET PO SCH (11:37)
[2021-06-30] MEDS: Acetaminophen 325 MG TABLET PO PRN (11:37)
[2021-06-30] MEDS: *HR* GlipiZIDE XL (24 HR) 10 MG TABLET PO SCH (11:37)
[2021-06-30] MEDS: amLODIPine 5 MG TABLET PO SCH (11:38)
[2021-06-30] MEDS: DilTIAZem CD (24hr) 120 MG CAP.ER.24H PO SCH (11:38)
[2021-06-30] MEDS: carvediloL 25 MG TABLET PO SCH ×2 (11:38→17:32)
[2021-06-30] MEDS ORDERED: 0.9 % Sodium Chloride 1,000 ML IVC SCH (13:15)
[2021-06-30] MEDS ORDERED: *HR* Warfarin 5 MG TABLET PO ONE (18:00)
[2021-06-30] MEDS: Insulin DETEMIR 100 UNIT/ML X5UNITS SUBQ SCH (21:25)
[2021-07-01 04:41] LABS: Sodium, Urine 22.5 mEq/L
[2021-07-01 05:21] LABS: Hematocrit 36.4 % (37.5-50.1); Hemoglobin 11.1 g/dL (12.9-16.9); Immature Granulocytes % 0.6 % (0-4); Lymphocytes # 0.5 K/mcL (0.6-4.6); Lymphocytes % 9.2 %; Mean Corpuscular HGB Conc 30.5 g/dL (31.6-35.5); Mean Corpuscular Volume 85.2 fL (83.0-100.0); Mean Platelet Volume 10.4 fL (9.4-12.4); Monocytes # 0.4 K/mcL (0.0-1.3); Monocytes % 8.2 %; Platelet Count 233 K/mcL (140-400); Red Blood Count 4.27 M/mcL (4.19-5.50); Red Cell Distribution Width 16.3 % (11.5-14.5); White Blood Count 4.9 K/mcL (4.3-11.1)
[2021-07-01 05:32] LABS: INR 2.1; Prothrombin Time 23.8 Seconds (9.4-12.1)
[2021-07-01 05:45] LABS: Calcium 7.6 mg/dL (8.6-10.3); Potassium 4.9 mEq/L (3.5-5.1)
[2021-07-01 05:47] LABS: Albumin 2.8 g/dL (3.5-5.7); Bilirubin,Indirect 0.2 mg/dL (0.0-1.0); Bilirubin,Total 0.2 mg/dL (0.3-1.0); Globulin 2.8 g/dL (2.4-3.5); Total Protein 5.6 g/dL (6.4-8.9)
[2021-07-01] MEDS: Tiotropium 10 INH DOSE IH SCH (08:26)
[2021-07-01] MEDS: Budesonide/Formoterol 160/4.5 1 PUFF INH IH SCH ×2 (08:27→20:10)
[2021-07-01] MEDS: Insulin LISPRO 300 UNITS/3 ML VIAL SUBQ SCH ×4 (09:12→19:58)
[2021-07-01] MEDS: DilTIAZem CD (24hr) 120 MG CAP.ER.24H PO SCH (09:13)
[2021-07-01] MEDS: amLODIPine 5 MG TABLET PO SCH (09:13)
[2021-07-01] MEDS: carvediloL 25 MG TABLET PO SCH ×2 (09:13→16:41)
[2021-07-01] MEDS ORDERED: *HR* Warfarin 10 MG TABLET PO ONE (18:00)
[2021-07-01] MEDS: Insulin DETEMIR 100 UNIT/ML X5UNITS SUBQ SCH (20:00)
[2021-07-01] MEDS: Benzonatate 100 MG CAPSULE PO PRN (21:52)
[2021-07-02 02:09] LABS: INR 2.7
[2021-07-02 02:20] LABS: Calcium 7.6 mg/dL (8.6-10.3); Magnesium 2.3 mg/dL (1.6-2.6); Phosphorous 4.5 mg/dL (2.7-4.5); Potassium 5.2 mEq/L (3.5-5.1)
[2021-07-02 02:34] LABS: Albumin 2.8 g/dL (3.5-5.7); Albumin/Globulin Ratio 1.1 (1.1-2.2); Bilirubin,Indirect 0.2 mg/dL (0.0-1.0); Bilirubin,Total 0.2 mg/dL (0.3-1.0); Globulin 2.6 g/dL (2.4-3.5); Total Protein 5.4 g/dL (6.4-8.9)
[2021-07-02] MEDS: DilTIAZem CD (24hr) 120 MG CAP.ER.24H PO SCH (07:32)
[2021-07-02] MEDS: amLODIPine 5 MG TABLET PO SCH (07:32)
[2021-07-02] MEDS: carvediloL 25 MG TABLET PO SCH ×2 (07:32→16:17)
[2021-07-02] MEDS: Insulin LISPRO 300 UNITS/3 ML VIAL SUBQ SCH ×4 (07:33→20:35)
[2021-07-02] MEDS: Tiotropium 10 INH DOSE IH SCH (08:34)
[2021-07-02] MEDS: Budesonide/Formoterol 160/4.5 1 PUFF INH IH SCH ×2 (08:35→20:29)
[2021-07-02 15:27] LABS: Calcium 7.7 mg/dL (8.6-10.3); Potassium 5.3 mEq/L (3.5-5.1)
[2021-07-02] MEDS: Benzonatate 100 MG CAPSULE PO PRN (16:16)
[2021-07-02] MEDS ORDERED: *HR* Warfarin 4 MG TABLET PO ONE (18:00)
[2021-07-02] MEDS: Insulin DETEMIR 100 UNIT/ML X5UNITS SUBQ SCH (20:36)
[2021-07-03 02:19] LABS: Calcium 7.9 mg/dL (8.6-10.3); Potassium 5.3 mEq/L (3.5-5.1)
[2021-07-03 02:20] LABS: INR 3.9
[2021-07-03 02:24] LABS: Prothrombin Time 43.4 Seconds (9.4-12.1)
[2021-07-03] MEDS: carvediloL 25 MG TABLET PO SCH ×2 (07:37→17:53)
[2021-07-03] MEDS: DilTIAZem CD (24hr) 120 MG CAP.ER.24H PO SCH (07:37)
[2021-07-03] MEDS: amLODIPine 5 MG TABLET PO SCH (07:37)
[2021-07-03] MEDS: Insulin LISPRO 300 UNITS/3 ML VIAL SUBQ SCH ×4 (07:39→20:27)
[2021-07-03] MEDS: Tiotropium 10 INH DOSE IH SCH (07:55)
[2021-07-03] MEDS: Budesonide/Formoterol 160/4.5 1 PUFF INH IH SCH ×2 (07:56→20:06)
[2021-07-03] MEDS: Furosemide 20 MG TABLET PO SCH (11:31)
[2021-07-03] MEDS: Insulin DETEMIR 100 UNIT/ML X5UNITS SUBQ SCH (20:26)
[2021-07-04 00:19] LABS: Protein/Creatinine Ratio,Urine 4.83 mg/mg (0.00-0.20)
[2021-07-04 05:10] LABS: Basophils % 0.1 %; Hematocrit 41.5 % (37.5-50.1); Hemoglobin 12.2 g/dL (12.9-16.9); Immature Granulocytes % 0.7 % (0-4); Lymphocytes # 0.6 K/mcL (0.6-4.6); Lymphocytes % 7.5 %; Mean Corpuscular HGB Conc 29.4 g/dL (31.6-35.5); Mean Corpuscular Hemoglobin 25.2 pg (28.0-33.3); Mean Corpuscular Volume 85.7 fL (83.0-100.0); Mean Platelet Volume 9.9 fL (9.4-12.4); Monocytes # 0.8 K/mcL (0.0-1.3); Monocytes % 9.6 %; Platelet Count 298 K/mcL (140-400); Red Blood Count 4.84 M/mcL (4.19-5.50); Red Cell Distribution Width 15.9 % (11.5-14.5); Segmented Neutrophils % 82.1 %
[2021-07-04 05:17] LABS: White Blood Count 8.5 K/mcL (4.3-11.1)
[2021-07-04 05:18] LABS: INR 4.2
[2021-07-04 05:30] LABS: Calcium 8.4 mg/dL (8.6-10.3); Potassium 5.1 mEq/L (3.5-5.1)
[2021-07-04 05:33] LABS: Magnesium 2.5 mg/dL (1.6-2.6); Phosphorous 3.3 mg/dL (2.7-4.5)
[2021-07-04 05:37] LABS: D-Dimer 310 ng/mLFEU (0-500); Fibrinogen 803 mg/dL (169-393); Prothrombin Time 46.3 Seconds (9.4-12.1)
[2021-07-04] MEDS: Budesonide/Formoterol 160/4.5 1 PUFF INH IH SCH ×2 (07:35→21:46)
[2021-07-04] MEDS: Tiotropium 10 INH DOSE IH SCH (07:35)
[2021-07-04] MEDS: amLODIPine 5 MG TABLET PO SCH (08:21)
[2021-07-04] MEDS: Furosemide 20 MG TABLET PO SCH (08:21)
[2021-07-04] MEDS: carvediloL 25 MG TABLET PO SCH ×2 (08:21→17:05)
[2021-07-04] MEDS: DilTIAZem CD (24hr) 120 MG CAP.ER.24H PO SCH (08:21)
[2021-07-04] MEDS: Insulin LISPRO 300 UNITS/3 ML VIAL SUBQ SCH ×6 (08:25→20:53)
[2021-07-04] MEDS: Benzonatate 100 MG CAPSULE PO PRN (11:53)
[2021-07-04] MEDS ORDERED: Insulin DETEMIR 100 UNIT/ML X5UNITS SUBQ SCH (21:00)
[2021-07-05 06:23] LABS: INR 2.9; Prothrombin Time 32.4 Seconds (9.4-12.1)
[2021-07-05 06:34] LABS: Magnesium 2.5 mg/dL (1.6-2.6); Phosphorous 3.9 mg/dL (2.7-4.5); Potassium 5.7 mEq/L (3.5-5.1)
[2021-07-05] MEDS: amLODIPine 5 MG TABLET PO SCH (09:01)
[2021-07-05] MEDS: DilTIAZem CD (24hr) 120 MG CAP.ER.24H PO SCH (09:01)
[2021-07-05] MEDS: Furosemide 20 MG TABLET PO SCH (09:01)
[2021-07-05] MEDS: carvediloL 25 MG TABLET PO SCH ×2 (09:01→17:32)
[2021-07-05] MEDS: Insulin DETEMIR 100 UNIT/ML X5UNITS SUBQ SCH ×2 (09:02→21:13)
[2021-07-05] MEDS: Insulin LISPRO 300 UNITS/3 ML VIAL SUBQ SCH ×7 (09:12→21:12)
[2021-07-05] MEDS: Budesonide/Formoterol 160/4.5 1 PUFF INH IH SCH ×2 (10:03→20:22)
[2021-07-05] MEDS: Tiotropium 10 INH DOSE IH SCH (10:04)
[2021-07-05 10:19] LABS: Calcium 8.5 mg/dL (8.6-10.3)
[2021-07-05] MEDS ORDERED: *HR* Warfarin 7.5 MG TABLET PO ONE (18:00)
[2021-07-06 02:05] LABS: Calcium 8.2 mg/dL (8.6-10.3); Potassium 5.4 mEq/L (3.5-5.1)
[2021-07-06 02:07] LABS: Fibrinogen 683 mg/dL (169-393); INR 2.5; Lactate Dehydrogenase 185 Units/L (140-271); Prothrombin Time 28.6 Seconds (9.4-12.1)
[2021-07-06 02:08] LABS: D-Dimer 373 ng/mLFEU (0-500)
[2021-07-06 02:20] LABS: Ferritin 230 ng/mL (20-250)
[2021-07-06] MEDS: Tiotropium 10 INH DOSE IH SCH (07:26)
[2021-07-06] MEDS: Budesonide/Formoterol 160/4.5 1 PUFF INH IH SCH ×2 (07:26→22:40)
[2021-07-06] MEDS: hydrALAZINE 25 MG TABLET PO SCH ×2 (09:15→17:20)
[2021-07-06] MEDS: amLODIPine 5 MG TABLET PO SCH (09:15)
[2021-07-06] MEDS: carvediloL 25 MG TABLET PO SCH ×2 (09:15→17:20)
[2021-07-06] MEDS: Furosemide 20 MG TABLET PO SCH (09:16)
[2021-07-06] MEDS: DilTIAZem CD (24hr) 120 MG CAP.ER.24H PO SCH (09:16)
[2021-07-06] MEDS: Insulin LISPRO 300 UNITS/3 ML VIAL SUBQ SCH ×7 (09:17→21:04)
[2021-07-06] MEDS: Insulin DETEMIR 100 UNIT/ML X5UNITS SUBQ SCH ×2 (09:17→21:04)
[2021-07-06] MEDS ORDERED: *HR* Warfarin 7.5 MG TABLET PO ONE (18:00)
[2021-07-07 00:12] LABS: Alpha 2 Globulin (PEP) 0.93 g/dL (0.48-1.05); Beta Globulin (PEP) 0.55 g/dL (0.48-1.10)
[2021-07-07] MEDS: hydrALAZINE 25 MG TABLET PO SCH (00:17)
[2021-07-07 01:59] LABS: INR 2.8; Prothrombin Time 31.1 Seconds (9.4-12.1)
[2021-07-07 02:11] LABS: BUN/Creatinine Ratio 40 (6-26); Blood Urea Nitrogen 57 mg/dL (6-20); Calcium 8.4 mg/dL (8.6-10.3); Carbon Dioxide 30 mEq/L (23-29); Chloride 104 mEq/L (98-107); Glucose 284 mg/dL (70-105); Osmolality,Calculated 314 (280-300); Potassium 5.6 mEq/L (3.5-5.1); Sodium 139 mEq/L (136-145); eGFR For African Americans > 60 (> 60); eGFR For Non-African Americans 51 (> 60)
[2021-07-07 02:13] LABS: Magnesium 2.5 mg/dL (1.6-2.6); Phosphorous 3.8 mg/dL (2.7-4.5)
[2021-07-07 03:05] VITALS: PULSE 72
[2021-07-07 03:39] LABS: Bilirubin,Urine Negative (Negative); Blood,Urine Moderate (Negative); Clarity,Urine Clear (Clear); Color,Urine Light-Yellow (Yellow); Glucose,Urine (UA) 200 mg/dL (Normal); Ketones,Urine Negative (Negative); Leukocyte Esterase,Urine Negative (Negative); Mucus,Urine Few per lpf (None-Few); Nitrite,Urine Negative (Negative); Protein,Urine >=300 mg/dL (Neg-Trace); RBC,Urine 15-30 per hpf (0-3); Specific Gravity,Urine 1.014 (1.010-1.025); Urobilinogen,Urine Normal (Normal); WBC,Urine 0-3 per hpf (0-3)
[2021-07-07 06:51] VITALS: BP 183/76; TEMP 98
[2021-07-07] MEDS: Tiotropium 10 INH DOSE IH SCH (07:40)
[2021-07-07] MEDS: Budesonide/Formoterol 160/4.5 1 PUFF INH IH SCH (07:40)
[2021-07-07 07:43] VITALS: O2SAT 93
[2021-07-07] MEDS ORDERED: hydrALAZINE 25 MG TABLET PO SCH (08:00)
[2021-07-07 10:37] LABS: Immunoglobulin A 107 mg/dL (68-408); Immunoglobulin G 788 mg/dL (768-1632); Immunoglobulin M 69 mg/dL (35-263)
[2021-07-07 10:43] LABS: IFE Reflexed IFE Done
[2021-07-07] MEDS ORDERED: *HR* Warfarin 5 MG TABLET PO ONE (18:00)
== END 2021-07-07 10:13 | disposition left against medical advice (07) | DRG 177 ==
LOC: CDU 18:52 → EMEROOARM 18:52 → SUATTDRO 06-27 02:09 → CDU 06-27 02:28 → SUATTDRO 06-27 15:06 → 3BNU 06-28 12:53
PROVIDERS: ADMIT Family Medicine; ATTEND Internal Medicine

== ENCOUNTER 2021-11-29 22:03 | Inpatient (IN) ==
[2021-11-29 22:53] LABS: Basophils % 0.3 %; Hemoglobin 11.5 g/dL (12.9-16.9); Mean Platelet Volume 9.9 fL (9.4-12.4)
[2021-11-29 22:54] LABS: Eosinophils % 0.1 %; Hematocrit 39.8 % (37.5-50.1); Immature Granulocytes % 1.2 % (0-4); Lymphocytes % 7.2 %; Mean Corpuscular HGB Conc 28.9 g/dL (31.6-35.5); Mean Corpuscular Hemoglobin 24.6 pg (28.0-33.3); Mean Corpuscular Volume 85.2 fL (83.0-100.0); Monocytes # 1.3 K/mcL (0.0-1.3); Monocytes % 8.9 %; Neutrophils # 11.6 K/mcL (1.6-8.9); Nucleated Red Blood Cells 0.4 /100 WBC (0); Platelet Count 395 K/mcL (140-400); Red Blood Count 4.67 M/mcL (4.19-5.50); Red Cell Distribution Width 18.9 % (11.5-14.5); Segmented Neutrophils % 82.3 %; White Blood Count 14.1 K/mcL (4.3-11.1)
[2021-11-29 23:04] LABS: Activated Partial Thrombo Time 84.6 Seconds (26.0-36.0)
[2021-11-29 23:11] LABS: Calcium 8.9 mg/dL (8.6-10.3); Potassium 6.1 mEq/L (3.5-5.1)
[2021-11-29 23:16] LABS: Large Platelets Present (Not Present)
[2021-11-29 23:17] LABS: Anisocytosis 1+ (Not Present); Polychromasia 1+ (Not Present)
[2021-11-29 23:18] LABS: Ovalocytes 1+ (Not Present)
[2021-11-29 23:21] LABS: INR 10.4; Prothrombin Time 113.3 Seconds (9.4-12.1)
[2021-11-29 23:40] LABS: Bilirubin,Urine Negative (Negative); Blood,Urine Small (Negative); Clarity,Urine Clear (Clear); Color,Urine Light-Yellow (Yellow); Glucose,Urine (UA) Normal (Normal); Hyaline Casts,Urine Few per lpf (None Seen); Ketones,Urine Negative (Negative); Leukocyte Esterase,Urine Negative (Negative); Mucus,Urine Few per lpf (None-Few); Nitrite,Urine Negative (Negative); PH,Urine 5.5 pH Units (5.0-8.0); Protein,Urine 100 mg/dL (Neg-Trace); Specific Gravity,Urine 1.015 (1.010-1.025); Squamous Epithelial Cell,Urine Few per hpf (None-Few); Urobilinogen,Urine Normal (Normal); WBC,Urine 0-3 per hpf (0-3)
[2021-11-30] MEDS ORDERED: DilTIAZem 50 MG/50 ML IV.SOLN IVC SCH ×2 (00:15→10:15)
[2021-11-30] MEDS ORDERED: Insulin Human Regular 10 UNIT in 0.9 % Sodium Chloride 10 ML IV ONE ×2 (01:05→17:18)
[2021-11-30] MEDS ORDERED: Calcium Gluconate 1gm/50mL 1 GM/50 ML BAG IVPB ONE ×2 (01:05→17:26)
[2021-11-30] MEDS ORDERED: *HR* Dextrose 50 % in Water (Syg) 50 ML SYRINGE IVP PRN (01:07)
[2021-11-30] MEDS ORDERED: D5% in Water 1,000 ML IVC PRN (01:07)
[2021-11-30] MEDS ORDERED: Dextrose Gel 15 GM/37.5 ML TUBE PO PRN ×2 (01:07)
[2021-11-30] MEDS ORDERED: SODIUM ZIRCONIUM CYCLOSILICATE 5 GM POWD.PACK PO ONE ×3 (01:09→22:09)
[2021-11-30] MEDS ORDERED: Amiodarone Premix 150 MG/100 ML BAG IVPB ONE (01:18)
[2021-11-30] MEDS ORDERED: Amiodarone Premix 360 MG/200 ML BAG IVC ONE ×2 (01:18→17:55)
[2021-11-30 02:14] LABS: Albumin 3.7 g/dL (3.5-5.7); Albumin/Globulin Ratio 1.4 (1.1-2.2); Bilirubin,Direct 0.1 mg/dL (0.0-0.2); Bilirubin,Indirect 0.2 mg/dL (0.0-1.0); Bilirubin,Total 0.3 mg/dL (0.3-1.0); Globulin 2.7 g/dL (2.4-3.5); Magnesium 2.5 mg/dL (1.6-2.6); Total Protein 6.4 g/dL (6.4-8.9)
[2021-11-30 03:01] LABS: Thyroid Stimulating Hormone 0.078 mcIU/mL (0.340-5.600)
[2021-11-30] MEDS ORDERED: Naloxone 0.4 MG/ML INJ IVP PRN (03:01)
[2021-11-30 03:33] LABS: Adenovirus Not Detected (Not Detect); Bordetella Pertussis Not Detected (Not Detect); Chlamydophila pneumoniae Not Detected (Not Detect); Coronavirus 229E Not Detected (Not Detect); Coronavirus HKU1 Not Detected (Not Detect); Coronavirus NL63 Not Detected (Not Detect); Coronavirus OC43 Not Detected (Not Detect); Human Metapneumovirus Not Detected (Not Detect); Human Rhinovirus/Enterovirus Not Detected (Not Detect); Influenza A Subtype 2009 H1 Not Detected (Not Detect); Influenza B Not Detected (Not Detect); Mycoplasma pneumoniae Not Detected (Not Detect); Parainfluenza Virus 1 Not Detected (Not Detect); Parainfluenza Virus 2 Not Detected (Not Detect); Parainfluenza Virus 3 Not Detected (Not Detect); Parainfluenza Virus 4 Not Detected (Not Detect); Respiratory Syncytial Virus Not Detected (Not Detect); SARS-CoV-2 Not Detected (Not Detect)
[2021-11-30] MEDS ORDERED: Perflutren Lipid Microsphere 1.3 ML in 0.9 % Sodium Chloride 8.7 ML IVP PRN (03:34)
[2021-11-30 07:02] LABS: Troponin I 0.06 ng/mL (< 0.04)
[2021-11-30] MEDS ORDERED: Amiodarone Premix 360 MG/200 ML BAG IVC SCH (07:19)
[2021-11-30] MEDS ORDERED: Insulin LISPRO 300 UNITS/3 ML VIAL SUBQ SCH (07:30)
[2021-11-30] MEDS: Insulin LISPRO 300 UNITS/3 ML VIAL SUBQ SCH ×3 (07:52→19:11)
[2021-11-30] MEDS ORDERED: cefTRIAXone 1,000 MG in 0.9 % Sodium Chloride Mini Bag 100 ML IVPB SCH (09:00)
[2021-11-30] MEDS ORDERED: Azithromycin 500 MG in 0.9 % Sodium Chloride 250 ML IVPB SCH (09:00)
[2021-11-30] MEDS ORDERED: Albuterol 2.5 MG/3 ML NEBULIZER IH PRN (10:15)
[2021-11-30 10:32] LABS: ABG Base Excess -7 mEq/L (-2 to 3); ABG HCO3 22 mEq/L (21-27); ABG Oxygen Saturation 90 % (95-98); ABG PCO2 61 mmHg (35-45); ABG PH 7.18 pH Units (7.32-7.45); ABG PO2 76 mmHg (85-104); ABG TCO2 24 mEq/L (20-26)
[2021-11-30 11:17] LABS: Basophils % 0.3 %; Eosinophils % 0.1 %; Hematocrit 40.7 % (37.5-50.1); Hemoglobin 11.8 g/dL (12.9-16.9); Immature Granulocytes % 0.9 % (0-4); Lymphocytes # 0.7 K/mcL (0.6-4.6); Lymphocytes % 4.9 %; Mean Corpuscular Hemoglobin 24.7 pg (28.0-33.3); Mean Corpuscular Volume 85.3 fL (83.0-100.0); Monocytes # 1.1 K/mcL (0.0-1.3); Monocytes % 7.9 %; Neutrophils # 11.8 K/mcL (1.6-8.9); Nucleated Red Blood Cells 0.4 /100 WBC (0); Platelet Count 370 K/mcL (140-400); Red Blood Count 4.77 M/mcL (4.19-5.50); Red Cell Distribution Width 19.1 % (11.5-14.5); Segmented Neutrophils % 85.9 %; White Blood Count 13.7 K/mcL (4.3-11.1)
[2021-11-30] MEDS: Ipratropium/Albuterol Neb 3 ML IH SCH ×3 (11:28→20:20)
[2021-11-30 11:31] LABS: INR 2.4; Prothrombin Time 26.1 Seconds (9.4-12.1)
[2021-11-30 11:36] LABS: Troponin I 0.08 ng/mL (< 0.04)
[2021-11-30 11:44] LABS: Calcium 8.9 mg/dL (8.6-10.3); Potassium 6.5 mEq/L (3.5-5.1)
[2021-11-30] MEDS: MethylPREDNISolone 40 MG/ML VIAL IVP SCH ×2 (11:53→18:34)
[2021-11-30] MEDS ORDERED: *HR* Metoprolol 5 MG/5 ML VIAL IVP SCH (12:00)
[2021-11-30] MEDS: Piperacillin/Tazobactam 3.375 GM in 0.9 % Sodium Chloride Mini Bag 100 ML IVPB SCH ×2 (12:02→20:11)
[2021-11-30] MEDS: *HR* Metoprolol 5 MG/5 ML VIAL IVP SCH ×2 (12:29→18:25)
[2021-11-30 14:09] LABS: ABG Base Excess -8 mEq/L (-2 to 3); ABG HCO3 22 mEq/L (21-27); ABG Oxygen Saturation 86 % (95-98); ABG PCO2 66 mmHg (35-45); ABG PH 7.13 pH Units (7.32-7.45); ABG PO2 68 mmHg (85-104); ABG TCO2 24 mEq/L (20-26); Blood Gas Modality AVAPS; Blood Gas VT 600 cc
[2021-11-30] MEDS ORDERED: Albumin 25% 25gram/100mL 25 GM/100 ML IV.SOLN IVPB ONE (14:22)
[2021-11-30 16:45] LABS: Total Protein,Pleural Fluid 2.4 g/dL
[2021-11-30 17:02] LABS: ABG Base Excess -9 mEq/L (-2 to 3); ABG HCO3 21 mEq/L (21-27); ABG Oxygen Saturation 93 % (95-98); ABG PCO2 59 mmHg (35-45); ABG PH 7.16 pH Units (7.32-7.45); ABG PO2 88 mmHg (85-104); ABG TCO2 23 mEq/L (20-26); Blood Gas Modality NIV
[2021-11-30 17:04] LABS: Lactate Dehydrogenase 160 Units/L (140-271); Total Protein 6.1 g/dL (6.4-8.9)
[2021-11-30 17:08] LABS: Calcium 8.7 mg/dL (8.6-10.3)
[2021-11-30 17:20] LABS: RBC,Pleural Fluid 5000 RBC/mcL
[2021-11-30 17:22] LABS: Appearance of Pleural Fl Clear (Clear)
[2021-11-30] MEDS ORDERED: *HR* Dextrose 50 % in Water (Vial) 50 ML VIAL IVP ONE (17:28)
[2021-11-30 17:40] LABS: Basophils,Pleural Fluid 0 %; Eosinophils,Pleural Fluid 0 %
[2021-11-30] MEDS: Amiodarone Premix 360 MG/200 ML BAG IVC SCH (18:15)
[2021-11-30] MEDS ORDERED: Sodium Bicarbonate 150 MEQ in D5% in Water 500 ML IVC SCH (19:00)
[2021-11-30] MEDS: Budesonide/Formoterol 160/4.5 1 PUFF INH IH SCH (20:20)
[2021-11-30 20:51] LABS: Potassium 6.2 mEq/L (3.5-5.1)
[2021-11-30 20:59] LABS: Magnesium 2.7 mg/dL (1.6-2.6)
[2021-11-30] MEDS: SODIUM ZIRCONIUM CYCLOSILICATE 5 GM POWD.PACK PO SCH (21:50)
[2021-11-30] MEDS: Doxycycline 100 MG in 0.9 % Sodium Chloride Mini Bag 100 ML IVPB SCH (22:31)
[2021-11-30] MEDS: *HR* Metoprolol 5 MG/5 ML VIAL IVP PRN (22:32)
[2021-12-01] MEDS: Ipratropium/Albuterol Neb 3 ML IH SCH ×6 (00:05→19:56)
[2021-12-01 01:11] LABS: Basophils % 0.1 %; Nucleated Red Blood Cells 0.3 /100 WBC (0)
[2021-12-01 01:13] LABS: Hematocrit 38.1 % (37.5-50.1); Hemoglobin 11.1 g/dL (12.9-16.9); Immature Granulocytes % 1.1 % (0-4); Lymphocytes # 0.3 K/mcL (0.6-4.6); Mean Corpuscular HGB Conc 29.1 g/dL (31.6-35.5); Mean Corpuscular Hemoglobin 24.6 pg (28.0-33.3); Mean Corpuscular Volume 84.3 fL (83.0-100.0); Monocytes # 0.1 K/mcL (0.0-1.3); Monocytes % 0.9 %; Platelet Count 317 K/mcL (140-400); Red Blood Count 4.52 M/mcL (4.19-5.50); Red Cell Distribution Width 18.6 % (11.5-14.5); Segmented Neutrophils % 94.9 %; White Blood Count 9.2 K/mcL (4.3-11.1)
[2021-12-01 01:15] LABS: Neutrophils # 8.7 K/mcL (1.6-8.9)
[2021-12-01 01:34] LABS: Albumin 3.4 g/dL (3.5-5.7); Albumin/Globulin Ratio 1.4 (1.1-2.2); Bilirubin,Total 0.3 mg/dL (0.3-1.0); Calcium 8.7 mg/dL (8.6-10.3); Globulin 2.4 g/dL (2.4-3.5); Potassium 6.1 mEq/L (3.5-5.1); Total Protein 5.8 g/dL (6.4-8.9)
[2021-12-01] MEDS: Piperacillin/Tazobactam 3.375 GM in 0.9 % Sodium Chloride Mini Bag 100 ML IVPB SCH ×3 (02:25→18:15)
[2021-12-01] MEDS: MethylPREDNISolone 40 MG/ML VIAL IVP SCH ×3 (02:26→18:18)
[2021-12-01] MEDS: Amiodarone Premix 360 MG/200 ML BAG IVC SCH ×4 (02:27→20:13)
[2021-12-01 05:24] LABS: ABG Base Excess -5 mEq/L (-2 to 3); ABG HCO3 22 mEq/L (21-27); ABG Oxygen Saturation 95 % (95-98); ABG PCO2 49 mmHg (35-45); ABG PH 7.27 pH Units (7.32-7.45); ABG PO2 88 mmHg (85-104); ABG TCO2 24 mEq/L (20-26); Blood Gas Modality AVAPS; Blood Gas VT 600 cc
[2021-12-01] MEDS: *HR* Metoprolol 5 MG/5 ML VIAL IVP PRN ×2 (05:48→20:14)
[2021-12-01] MEDS: Budesonide/Formoterol 160/4.5 1 PUFF INH IH SCH ×2 (07:38→19:56)
[2021-12-01] MEDS: SODIUM ZIRCONIUM CYCLOSILICATE 5 GM POWD.PACK PO SCH (08:38)
[2021-12-01] MEDS: Insulin LISPRO 300 UNITS/3 ML VIAL SUBQ SCH ×3 (08:39→18:17)
[2021-12-01] MEDS ORDERED: (Roflumilast [Daliresp] 500 MCG Tablet) PO SCH (09:00)
[2021-12-01 09:44] LABS: Hematocrit 37.4 % (37.5-50.1); Hemoglobin 10.9 g/dL (12.9-16.9); Immature Granulocytes % 0.8 % (0-4); Lymphocytes # 0.3 K/mcL (0.6-4.6); Lymphocytes % 2.6 %; Mean Corpuscular HGB Conc 29.1 g/dL (31.6-35.5); Mean Corpuscular Volume 82.2 fL (83.0-100.0); Mean Platelet Volume 9.9 fL (9.4-12.4); Monocytes # 0.3 K/mcL (0.0-1.3); Monocytes % 2.6 %; Neutrophils # 9.2 K/mcL (1.6-8.9); Nucleated Red Blood Cells 0.3 /100 WBC (0); Platelet Count 338 K/mcL (140-400); Red Blood Count 4.55 M/mcL (4.19-5.50); Red Cell Distribution Width 18.9 % (11.5-14.5); White Blood Count 9.8 K/mcL (4.3-11.1)
[2021-12-01 10:01] LABS: Albumin 3.4 g/dL (3.5-5.7); Albumin/Globulin Ratio 1.3 (1.1-2.2); Bilirubin,Total 0.3 mg/dL (0.3-1.0); Calcium 8.8 mg/dL (8.6-10.3); Globulin 2.6 g/dL (2.4-3.5); Potassium 5.5 mEq/L (3.5-5.1)
[2021-12-01] MEDS: Doxycycline 100 MG in 0.9 % Sodium Chloride Mini Bag 100 ML IVPB SCH ×2 (11:30→21:04)
[2021-12-01] MEDS ORDERED: *HR* Digoxin 0.5 MG/2 ML AMPUL IVP ONE (11:45)
[2021-12-01 13:36] LABS: INR 1.3; Prothrombin Time 14.8 Seconds (9.4-12.1)
[2021-12-01] MEDS: Albumin 25% 25gram/100mL 25 GM/100 ML IV.SOLN IVPB SCH (15:18)
[2021-12-01] MEDS ORDERED: *HR* Digoxin 0.5 MG/2 ML AMPUL IVP SCH (18:00)
[2021-12-01] MEDS ORDERED: SODIUM ZIRCONIUM CYCLOSILICATE 5 GM POWD.PACK PO SCH (21:00)
[2021-12-01 22:58] LABS: Protein/Creatinine Ratio,Urine 1.34 mg/mg (0.00-0.20)
[2021-12-01 23:23] LABS: Sodium, Urine < 10.0 mEq/L
[2021-12-02] MEDS: Albumin 25% 25gram/100mL 25 GM/100 ML IV.SOLN IVPB SCH ×3 (00:06→17:06)
[2021-12-02] MEDS: Ipratropium/Albuterol Neb 3 ML IH SCH ×7 (00:18→23:40)
[2021-12-02] MEDS: Amiodarone Premix 360 MG/200 ML BAG IVC SCH (01:56)
[2021-12-02] MEDS: MethylPREDNISolone 40 MG/ML VIAL IVP SCH ×3 (02:01→21:16)
[2021-12-02] MEDS: *HR* Metoprolol 5 MG/5 ML VIAL IVP PRN ×2 (02:05→08:33)
[2021-12-02] MEDS: Piperacillin/Tazobactam 3.375 GM in 0.9 % Sodium Chloride Mini Bag 100 ML IVPB SCH ×3 (02:08→21:19)
[2021-12-02 04:28] LABS: Basophils % 0.1 %; Hematocrit 35.8 % (37.5-50.1); Hemoglobin 10.8 g/dL (12.9-16.9); Immature Granulocytes % 0.5 % (0-4); Lymphocytes # 0.3 K/mcL (0.6-4.6); Lymphocytes % 2.4 %; Mean Corpuscular HGB Conc 30.2 g/dL (31.6-35.5); Mean Corpuscular Hemoglobin 24.3 pg (28.0-33.3); Mean Corpuscular Volume 80.6 fL (83.0-100.0); Mean Platelet Volume 10.2 fL (9.4-12.4); Monocytes # 0.4 K/mcL (0.0-1.3); Monocytes % 3.9 %; Neutrophils # 9.7 K/mcL (1.6-8.9); Nucleated Red Blood Cells 0.2 /100 WBC (0); Platelet Count 327 K/mcL (140-400); Red Blood Count 4.44 M/mcL (4.19-5.50); Red Cell Distribution Width 18.3 % (11.5-14.5); Segmented Neutrophils % 93.1 %; White Blood Count 10.4 K/mcL (4.3-11.1)
[2021-12-02 04:42] LABS: Albumin 3.8 g/dL (3.5-5.7); Albumin/Globulin Ratio 1.6 (1.1-2.2); Bilirubin,Total 0.4 mg/dL (0.3-1.0); Calcium 8.9 mg/dL (8.6-10.3); Globulin 2.4 g/dL (2.4-3.5); Potassium 4.2 mEq/L (3.5-5.1); Total Protein 6.2 g/dL (6.4-8.9)
[2021-12-02 04:45] LABS: Phosphorous 4.5 mg/dL (2.7-4.5); Uric Acid 12.1 mg/dL (2.3-7.6)
[2021-12-02 04:57] LABS: Thyroid Stimulating Hormone 0.036 mcIU/mL (0.340-5.600)
[2021-12-02 05:07] LABS: Folate 15.4 ng/mL (3.0-16.0)
[2021-12-02 05:08] LABS: Vitamin B12 748 pg/mL (250-1100)
[2021-12-02 05:10] LABS: Vitamin D 25 Hydroxy 11 ng/mL (30-80)
[2021-12-02 06:04] LABS: Hepatitis B Surface Antigen Nonreactive (Nonreactive)
[2021-12-02 06:33] LABS: Hepatitis A Antibody IgM Nonreactive (Nonreactive); Hepatitis B Core IgM Nonreactive (Nonreactive); Hepatitis C Virus Antibody Nonreactive (Nonreactive)
[2021-12-02] MEDS: Budesonide/Formoterol 160/4.5 1 PUFF INH IH SCH ×2 (07:51→20:16)
[2021-12-02] MEDS: Insulin LISPRO 300 UNITS/3 ML VIAL SUBQ SCH ×4 (08:32→21:29)
[2021-12-02 08:44] LABS: Triiodothyronine (T3) Free 2.4 pg/mL (2.50-3.90)
[2021-12-02] MEDS: Doxycycline 100 MG in 0.9 % Sodium Chloride Mini Bag 100 ML IVPB SCH (10:41)
[2021-12-02] MEDS ORDERED: *HR* Heparin 5,000 UNIT/ML VIAL IVP ONE (10:57)
[2021-12-02] MEDS ORDERED: *HR* Heparin 5,000 UNIT/ML VIAL IVP PRN ×2 (10:57)
[2021-12-02 11:36] LABS: Heparin anti-factor XA UFH < 0.04 IU/mL (0.30-0.70)
[2021-12-02 11:37] LABS: INR 1.3; Prothrombin Time 14.2 Seconds (9.4-12.1)
[2021-12-02] MEDS: Heparin 25,000UNIT/250ML 1/2NS 25,000 UNIT/250 ML IV.SOLN IVC SCH (13:18)
[2021-12-02] MEDS: allopurinoL 100 MG TABLET PO SCH (13:18)
[2021-12-02] MEDS: Ondansetron 4 MG/2 ML VIAL IVP PRN (14:39)
[2021-12-02] MEDS: Ergocalciferol (VIT D2) 50,000 UNIT (1.25MG) CAP PO SCH (17:05)
[2021-12-02 20:36] LABS: Creatinine,Urine 44 mg/dL
[2021-12-02] MEDS: *HR* Amiodarone 200 MG TABLET PO SCH (21:18)
[2021-12-03] MEDS: Albumin 25% 25gram/100mL 25 GM/100 ML IV.SOLN IVPB SCH ×3 (01:15→16:02)
[2021-12-03] MEDS: Heparin 25,000UNIT/250ML 1/2NS 25,000 UNIT/250 ML IV.SOLN IVC SCH ×2 (02:35→17:19)
[2021-12-03] MEDS: Ondansetron 4 MG/2 ML VIAL IVP PRN (02:43)
[2021-12-03] MEDS: Piperacillin/Tazobactam 3.375 GM in 0.9 % Sodium Chloride Mini Bag 100 ML IVPB SCH ×3 (02:43→18:29)
[2021-12-03] MEDS: MethylPREDNISolone 40 MG/ML VIAL IVP SCH ×3 (02:43→18:29)
[2021-12-03] MEDS: Ipratropium/Albuterol Neb 3 ML IH SCH ×6 (04:53→23:24)
[2021-12-03 04:54] LABS: Hematocrit 33.3 % (37.5-50.1); Hemoglobin 10.2 g/dL (12.9-16.9); Immature Granulocytes % 0.8 % (0-4); Lymphocytes # 0.2 K/mcL (0.6-4.6); Lymphocytes % 2.3 %; Mean Corpuscular HGB Conc 30.6 g/dL (31.6-35.5); Mean Corpuscular Hemoglobin 24.9 pg (28.0-33.3); Mean Corpuscular Volume 81.4 fL (83.0-100.0); Mean Platelet Volume 10.2 fL (9.4-12.4); Monocytes # 0.3 K/mcL (0.0-1.3); Monocytes % 3.5 %; Nucleated Red Blood Cells 0.2 /100 WBC (0); Platelet Count 286 K/mcL (140-400); Red Blood Count 4.09 M/mcL (4.19-5.50); Red Cell Distribution Width 18.4 % (11.5-14.5); Segmented Neutrophils % 93.4 %; White Blood Count 8.6 K/mcL (4.3-11.1)
[2021-12-03 05:13] LABS: Albumin/Globulin Ratio 1.9 (1.1-2.2); Bilirubin,Total 0.5 mg/dL (0.3-1.0); Calcium 8.9 mg/dL (8.6-10.3); Globulin 2.1 g/dL (2.4-3.5); Potassium 4.3 mEq/L (3.5-5.1); Total Protein 6.1 g/dL (6.4-8.9)
[2021-12-03] MEDS: *HR* Amiodarone 200 MG TABLET PO SCH ×2 (07:36→21:17)
[2021-12-03] MEDS: allopurinoL 100 MG TABLET PO SCH (07:36)
[2021-12-03] MEDS: Insulin LISPRO 300 UNITS/3 ML VIAL SUBQ SCH ×4 (07:37→21:16)
[2021-12-03] MEDS: Budesonide/Formoterol 160/4.5 1 PUFF INH IH SCH ×2 (07:43→19:22)
[2021-12-04] MEDS: MethylPREDNISolone 40 MG/ML VIAL IVP SCH ×3 (03:47→18:29)
[2021-12-04] MEDS: Piperacillin/Tazobactam 3.375 GM in 0.9 % Sodium Chloride Mini Bag 100 ML IVPB SCH ×3 (03:48→18:27)
[2021-12-04] MEDS: Ipratropium/Albuterol Neb 3 ML IH SCH ×5 (03:57→20:30)
[2021-12-04] MEDS: Budesonide/Formoterol 160/4.5 1 PUFF INH IH SCH ×2 (07:23→20:30)
[2021-12-04] MEDS: Insulin LISPRO 300 UNITS/3 ML VIAL SUBQ SCH ×3 (09:04→18:30)
[2021-12-04] MEDS: *HR* Amiodarone 200 MG TABLET PO SCH ×2 (09:05→20:09)
[2021-12-04] MEDS: Heparin 25,000UNIT/250ML 1/2NS 25,000 UNIT/250 ML IV.SOLN IVC SCH ×2 (09:05→22:21)
[2021-12-04] MEDS: allopurinoL 100 MG TABLET PO SCH (09:05)
[2021-12-04 10:50] LABS: Hematocrit 35.5 % (37.5-50.1); Hemoglobin 10.5 g/dL (12.9-16.9); Lymphocytes # 0.2 K/mcL (0.6-4.6); Mean Corpuscular HGB Conc 29.6 g/dL (31.6-35.5); Mean Corpuscular Hemoglobin 24.1 pg (28.0-33.3); Mean Corpuscular Volume 81.6 fL (83.0-100.0); Mean Platelet Volume 10.5 fL (9.4-12.4); Nucleated Red Blood Cells 0.3 /100 WBC (0); Platelet Count 285 K/mcL (140-400); Red Blood Count 4.35 M/mcL (4.19-5.50); Red Cell Distribution Width 18.3 % (11.5-14.5); White Blood Count 7.5 K/mcL (4.3-11.1)
[2021-12-04 11:16] LABS: Albumin 3.9 g/dL (3.5-5.7); Albumin/Globulin Ratio 1.9 (1.1-2.2); Bilirubin,Total 0.5 mg/dL (0.3-1.0); Calcium 8.7 mg/dL (8.6-10.3); Globulin 2.1 g/dL (2.4-3.5); Potassium 4.9 mEq/L (3.5-5.1)
[2021-12-04] MEDS: Albumin 25% 25gram/100mL 25 GM/100 ML IV.SOLN IVPB SCH ×2 (14:03→20:08)
[2021-12-04 15:12] LABS: Anisocytosis 1+ (Not Present); Neutrophils # 7.4 K/mcL (1.6-8.9); Platelet Clumps Few (Not Present); Platelet Estimate Normal (Normal); Poikilocytosis 1+ (Not Present)
[2021-12-05] MEDS: Ipratropium/Albuterol Neb 3 ML IH SCH ×7 (00:06→23:52)
[2021-12-05] MEDS: Insulin DETEMIR 100 UNIT/ML X5UNITS SUBQ SCH ×2 (00:24→20:35)
[2021-12-05] MEDS: Insulin LISPRO 300 UNITS/3 ML VIAL SUBQ SCH ×5 (00:24→20:50)
[2021-12-05] MEDS: MethylPREDNISolone 40 MG/ML VIAL IVP SCH ×3 (01:06→19:54)
[2021-12-05] MEDS: Piperacillin/Tazobactam 3.375 GM in 0.9 % Sodium Chloride Mini Bag 100 ML IVPB SCH ×3 (01:07→20:28)
[2021-12-05 02:52] LABS: Hematocrit 35.2 % (37.5-50.1); Hemoglobin 10.5 g/dL (12.9-16.9); Immature Granulocytes % 0.5 % (0-4); Lymphocytes # 0.2 K/mcL (0.6-4.6); Lymphocytes % 2.6 %; Mean Corpuscular HGB Conc 29.8 g/dL (31.6-35.5); Mean Corpuscular Hemoglobin 24.5 pg (28.0-33.3); Mean Corpuscular Volume 82.2 fL (83.0-100.0); Mean Platelet Volume 10.5 fL (9.4-12.4); Monocytes # 0.4 K/mcL (0.0-1.3); Monocytes % 5.2 %; Neutrophils # 7.4 K/mcL (1.6-8.9); Nucleated Red Blood Cells 0.2 /100 WBC (0); Platelet Count 247 K/mcL (140-400); Red Blood Count 4.28 M/mcL (4.19-5.50); Red Cell Distribution Width 18.3 % (11.5-14.5); Segmented Neutrophils % 91.7 %; White Blood Count 8.1 K/mcL (4.3-11.1)
[2021-12-05 03:11] LABS: Bilirubin,Total 0.5 mg/dL (0.3-1.0); Calcium 8.7 mg/dL (8.6-10.3); Potassium 5.1 mEq/L (3.5-5.1)
[2021-12-05] MEDS: Albumin 25% 25gram/100mL 25 GM/100 ML IV.SOLN IVPB SCH ×3 (05:36→20:09)
[2021-12-05] MEDS: Budesonide/Formoterol 160/4.5 1 PUFF INH IH SCH ×2 (07:26→20:14)
[2021-12-05] MEDS: allopurinoL 100 MG TABLET PO SCH (08:48)
[2021-12-05] MEDS: *HR* Amiodarone 200 MG TABLET PO SCH ×2 (08:48→19:53)
[2021-12-05] MEDS: DilTIAZem CD (24hr) 180 MG CAP.ER.24H PO SCH (09:13)
[2021-12-05] MEDS: Metoprolol XL (24 HR) Succ 50 MG TAB.ER.24H PO SCH (12:04)
[2021-12-05] MEDS: Heparin 25,000UNIT/250ML 1/2NS 25,000 UNIT/250 ML IV.SOLN IVC SCH ×2 (14:32→14:56)
[2021-12-06] MEDS: MethylPREDNISolone 40 MG/ML VIAL IVP SCH ×2 (03:08→11:34)
[2021-12-06] MEDS: Piperacillin/Tazobactam 3.375 GM in 0.9 % Sodium Chloride Mini Bag 100 ML IVPB SCH ×3 (03:10→21:55)
[2021-12-06] MEDS: Albumin 25% 25gram/100mL 25 GM/100 ML IV.SOLN IVPB SCH (03:19)
[2021-12-06 04:00] LABS: Hematocrit 35.4 % (37.5-50.1); Hemoglobin 10.4 g/dL (12.9-16.9); Immature Granulocytes % 0.5 % (0-4); Lymphocytes # 0.1 K/mcL (0.6-4.6); Lymphocytes % 1.5 %; Mean Corpuscular HGB Conc 29.4 g/dL (31.6-35.5); Mean Corpuscular Hemoglobin 24.1 pg (28.0-33.3); Mean Corpuscular Volume 82.1 fL (83.0-100.0); Mean Platelet Volume 11.1 fL (9.4-12.4); Monocytes # 0.3 K/mcL (0.0-1.3); Monocytes % 3.2 %; Neutrophils # 8.6 K/mcL (1.6-8.9); Nucleated Red Blood Cells 0.2 /100 WBC (0); Platelet Count 232 K/mcL (140-400); Red Blood Count 4.31 M/mcL (4.19-5.50); Red Cell Distribution Width 17.9 % (11.5-14.5); Segmented Neutrophils % 94.8 %; White Blood Count 9.1 K/mcL (4.3-11.1)
[2021-12-06] MEDS: Ipratropium/Albuterol Neb 3 ML IH SCH ×5 (04:10→20:25)
[2021-12-06] MEDS: Heparin 25,000UNIT/250ML 1/2NS 25,000 UNIT/250 ML IV.SOLN IVC SCH ×3 (04:30→22:15)
[2021-12-06 05:14] LABS: Alanine Aminotransferase 13 Units/L (7-52); Albumin 4.3 g/dL (3.5-5.7); Albumin/Globulin Ratio 2.5 (1.1-2.2); Aspartate Amino Transferase 7 Units/L (13-39); Bilirubin,Total 0.4 mg/dL (0.3-1.0); Blood Urea Nitrogen > 130 mg/dL (6-20); Calcium 8.9 mg/dL (8.6-10.3); Carbon Dioxide 21 mEq/L (23-29); Chloride 96 mEq/L (98-107); Globulin 1.7 g/dL (2.4-3.5); Glucose 413 mg/dL (70-105); Potassium 5.4 mEq/L (3.5-5.1); Sodium 130 mEq/L (136-145); eGFR For African Americans 18 (> 60); eGFR For Non-African Americans 15 (> 60)
[2021-12-06 05:46] LABS: Alkaline Phosphatase 28 Units/L (34-104)
[2021-12-06] MEDS: Budesonide/Formoterol 160/4.5 1 PUFF INH IH SCH ×2 (07:40→20:25)
[2021-12-06] MEDS: Metoprolol XL (24 HR) Succ 50 MG TAB.ER.24H PO SCH ×2 (07:56→22:02)
[2021-12-06] MEDS: DilTIAZem CD (24hr) 180 MG CAP.ER.24H PO SCH (07:56)
[2021-12-06] MEDS: *HR* Amiodarone 200 MG TABLET PO SCH ×2 (07:57→22:03)
[2021-12-06] MEDS: allopurinoL 100 MG TABLET PO SCH (07:57)
[2021-12-06] MEDS: Insulin LISPRO 300 UNITS/3 ML VIAL SUBQ SCH ×4 (08:52→22:00)
[2021-12-06 09:20] LABS: Alpha 2 Globulin (PEP) 0.77 g/dL (0.48-1.05)
[2021-12-06 10:08] LABS: IFE Reflexed IFE Done; Immunoglobulin G 481 mg/dL (768-1632); Immunoglobulin M 45 mg/dL (35-263)
[2021-12-06 10:09] LABS: Immunoglobulin A 110 mg/dL (68-408)
[2021-12-06] MEDS ORDERED: Albumin 25% 25gram/100mL 25 GM/100 ML IV.SOLN IVPB PRN (10:53)
[2021-12-06] MEDS ORDERED: *HR* Heparin 10,000 UNIT/10 ML VIAL IV PRN (10:53)
[2021-12-06] MEDS ORDERED: 0.9 % Sodium Chloride 250 ML IVC PRN (10:53)
[2021-12-06] MEDS ORDERED: 0.9 % Sodium Chloride 1,000 ML PRIME SCH (11:00)
[2021-12-06 12:04] LABS: Hepatitis B Surface Antibody < 3.10 mIU/mL
[2021-12-06 12:15] LABS: Hepatitis B Surface Antigen Nonreactive (Nonreactive)
[2021-12-06] MEDS ORDERED: *HR* Heparin 5,000 UNIT/ML VIAL ONE (14:18)
[2021-12-06] MEDS: Insulin DETEMIR 100 UNIT/ML X5UNITS SUBQ SCH (21:59)
[2021-12-06] MEDS: hydrOXYzine pamoate 25 MG CAPSULE PO PRN (22:02)
[2021-12-07] MEDS: Ipratropium/Albuterol Neb 3 ML IH SCH ×7 (00:12→23:54)
[2021-12-07] MEDS: Piperacillin/Tazobactam 3.375 GM in 0.9 % Sodium Chloride Mini Bag 100 ML IVPB SCH ×3 (04:17→22:29)
[2021-12-07 06:54] LABS: Basophils % 0.1 %; Hematocrit 38.6 % (37.5-50.1); Hemoglobin 11.5 g/dL (12.9-16.9); Immature Granulocytes % 0.9 % (0-4); Lymphocytes # 0.5 K/mcL (0.6-4.6); Lymphocytes % 2.7 %; Mean Corpuscular HGB Conc 29.8 g/dL (31.6-35.5); Mean Corpuscular Hemoglobin 24.2 pg (28.0-33.3); Mean Corpuscular Volume 81.1 fL (83.0-100.0); Monocytes # 1.9 K/mcL (0.0-1.3); Monocytes % 9.9 %; Neutrophils # 16.2 K/mcL (1.6-8.9); Nucleated Red Blood Cells 0.1 /100 WBC (0); Platelet Count 311 K/mcL (140-400); Red Blood Count 4.76 M/mcL (4.19-5.50); Red Cell Distribution Width 18.2 % (11.5-14.5); Segmented Neutrophils % 86.4 %
[2021-12-07 07:05] LABS: White Blood Count 18.7 K/mcL (4.3-11.1)
[2021-12-07] MEDS: Heparin 25,000UNIT/250ML 1/2NS 25,000 UNIT/250 ML IV.SOLN IVC SCH ×2 (07:22→17:30)
[2021-12-07] MEDS: Budesonide/Formoterol 160/4.5 1 PUFF INH IH SCH ×2 (07:40→19:31)
[2021-12-07] MEDS ORDERED: *HR* Heparin 10,000 UNIT/10 ML VIAL IV PRN (08:42)
[2021-12-07] MEDS ORDERED: 0.9 % Sodium Chloride 250 ML IVC PRN (08:42)
[2021-12-07] MEDS ORDERED: 0.9 % Sodium Chloride 1,000 ML PRIME SCH (08:45)
[2021-12-07] MEDS: Metoprolol XL (24 HR) Succ 50 MG TAB.ER.24H PO SCH ×3 (09:00→23:46)
[2021-12-07] MEDS: *HR* Amiodarone 200 MG TABLET PO SCH ×3 (09:00→23:46)
[2021-12-07] MEDS: DilTIAZem CD (24hr) 180 MG CAP.ER.24H PO SCH (09:00)
[2021-12-07] MEDS: allopurinoL 100 MG TABLET PO SCH (09:02)
[2021-12-07] MEDS: predniSONE 20 MG TABLET PO SCH (09:02)
[2021-12-07] MEDS: Insulin LISPRO 300 UNITS/3 ML VIAL SUBQ SCH ×4 (09:03→22:29)
[2021-12-07 10:04] LABS: Blood Urea Nitrogen > 130 mg/dL (6-20); Calcium 9.5 mg/dL (8.6-10.3); Carbon Dioxide 23 mEq/L (23-29); Chloride 97 mEq/L (98-107); Glucose 333 mg/dL (70-105); Magnesium 2.5 mg/dL (1.6-2.6); Phosphorous 6.6 mg/dL (2.7-4.5); Potassium 5.6 mEq/L (3.5-5.1); Sodium 131 mEq/L (136-145); eGFR For African Americans 19 (> 60); eGFR For Non-African Americans 15 (> 60)
[2021-12-07] MEDS ORDERED: *HR* Heparin 5,000 UNIT/ML VIAL IVP PRN ×2 (15:48)
[2021-12-07 20:08] LABS: Hemoglobin 10.8 g/dL (12.9-16.9); Mean Corpuscular Hemoglobin 24.5 pg (28.0-33.3); Mean Corpuscular Volume 81.6 fL (83.0-100.0); Mean Platelet Volume 10.6 fL (9.4-12.4); Platelet Count 188 K/mcL (140-400); Red Blood Count 4.41 M/mcL (4.19-5.50); Red Cell Distribution Width 18.5 % (11.5-14.5); White Blood Count 13.4 K/mcL (4.3-11.1)
[2021-12-07 20:17] LABS: Heparin anti-factor XA UFH 0.33 IU/mL (0.30-0.70); INR 1.1; Prothrombin Time 12.6 Seconds (9.4-12.1)
[2021-12-07] MEDS: Insulin DETEMIR 100 UNIT/ML X5UNITS SUBQ SCH (22:29)
[2021-12-07] MEDS: hydrOXYzine pamoate 25 MG CAPSULE PO PRN (22:29)
[2021-12-08] MEDS: Metoprolol XL (24 HR) Succ 50 MG TAB.ER.24H PO SCH ×3 (00:54→22:13)
[2021-12-08] MEDS: *HR* Amiodarone 200 MG TABLET PO SCH ×3 (00:55→22:13)
[2021-12-08] MEDS: Ipratropium/Albuterol Neb 3 ML IH SCH ×3 (04:07→11:18)
[2021-12-08] MEDS: Piperacillin/Tazobactam 3.375 GM in 0.9 % Sodium Chloride Mini Bag 100 ML IVPB SCH ×3 (04:20→22:09)
[2021-12-08 04:50] LABS: Basophils % 0.1 %; Eosinophils % 0.1 %; Hematocrit 38.7 % (37.5-50.1); Hemoglobin 11.5 g/dL (12.9-16.9); Immature Granulocytes % 0.7 % (0-4); Lymphocytes # 0.6 K/mcL (0.6-4.6); Lymphocytes % 4.3 %; Mean Corpuscular HGB Conc 29.7 g/dL (31.6-35.5); Mean Corpuscular Hemoglobin 24.4 pg (28.0-33.3); Mean Corpuscular Volume 82.2 fL (83.0-100.0); Mean Platelet Volume 10.8 fL (9.4-12.4); Monocytes # 1.6 K/mcL (0.0-1.3); Monocytes % 10.7 %; Neutrophils # 12.4 K/mcL (1.6-8.9); Platelet Count 195 K/mcL (140-400); Red Blood Count 4.71 M/mcL (4.19-5.50); Red Cell Distribution Width 18.5 % (11.5-14.5); Segmented Neutrophils % 84.1 %; White Blood Count 14.8 K/mcL (4.3-11.1)
[2021-12-08 05:03] LABS: Calcium 9.4 mg/dL (8.6-10.3); Magnesium 2.4 mg/dL (1.6-2.6); Phosphorous 5.6 mg/dL (2.7-4.5); Potassium 4.9 mEq/L (3.5-5.1)
[2021-12-08] MEDS: Heparin 25,000UNIT/250ML 1/2NS 25,000 UNIT/250 ML IV.SOLN IVC SCH ×2 (05:23→17:32)
[2021-12-08] MEDS: Budesonide/Formoterol 160/4.5 1 PUFF INH IH SCH ×2 (07:42→19:49)
[2021-12-08] MEDS ORDERED: *HR* Heparin 10,000 UNIT/10 ML VIAL IV PRN (08:34)
[2021-12-08] MEDS ORDERED: 0.9 % Sodium Chloride 250 ML IVC PRN (08:34)
[2021-12-08] MEDS: allopurinoL 100 MG TABLET PO SCH (08:55)
[2021-12-08] MEDS: Insulin LISPRO 300 UNITS/3 ML VIAL SUBQ SCH ×4 (08:55→22:24)
[2021-12-08] MEDS: predniSONE 20 MG TABLET PO SCH (08:55)
[2021-12-08] MEDS ORDERED: Ipratropium/Albuterol Neb 3 ML IH PRN (14:35)
[2021-12-08 14:40] LABS: Amorphous Sediment,Urine Few per hpf (None-Few); Bilirubin,Urine Negative (Negative); Blood,Urine Large (Negative); Clarity,Urine Turbid (Clear); Color,Urine Light-Yellow (Yellow); Glucose,Urine (UA) Normal (Normal); Ketones,Urine Negative (Negative); Leukocyte Esterase,Urine Trace (Negative); Mucus,Urine Few per lpf (None-Few); Nitrite,Urine Negative (Negative); Protein,Urine >=300 mg/dL (Neg-Trace); RBC,Urine TNTC per hpf (0-3); Specific Gravity,Urine 1.016 (1.010-1.025); Squamous Epithelial Cell,Urine Few per hpf (None-Few); Urobilinogen,Urine Normal (Normal); WBC,Urine 15-30 per hpf (0-3)
[2021-12-08 15:25] LABS: Adenovirus Not Detected (Not Detect); Bordetella Pertussis Not Detected (Not Detect); Chlamydophila pneumoniae Not Detected (Not Detect); Coronavirus 229E Not Detected (Not Detect); Coronavirus HKU1 Not Detected (Not Detect); Coronavirus NL63 Not Detected (Not Detect); Coronavirus OC43 Not Detected (Not Detect); Human Metapneumovirus Not Detected (Not Detect); Human Rhinovirus/Enterovirus Not Detected (Not Detect); Influenza A Subtype 2009 H1 Not Detected (Not Detect); Influenza B Not Detected (Not Detect); Mycoplasma pneumoniae Not Detected (Not Detect); Parainfluenza Virus 1 Not Detected (Not Detect); Parainfluenza Virus 2 Not Detected (Not Detect); Parainfluenza Virus 3 Not Detected (Not Detect); Parainfluenza Virus 4 Not Detected (Not Detect); Respiratory Syncytial Virus Not Detected (Not Detect); SARS-CoV-2 Not Detected (Not Detect)
[2021-12-08] MEDS: hydrOXYzine pamoate 25 MG CAPSULE PO PRN (22:13)
[2021-12-08] MEDS: Insulin DETEMIR 100 UNIT/ML X5UNITS SUBQ SCH (22:24)
[2021-12-09 02:18] LABS: Eosinophils # 0.1 K/mcL (0.0-0.6); Eosinophils % 1.1 %; Hematocrit 36.4 % (37.5-50.1); Hemoglobin 10.7 g/dL (12.9-16.9); Immature Platelets 7.9 % (1.1-6.1); Lymphocytes # 0.8 K/mcL (0.6-4.6); Lymphocytes % 7.3 %; Mean Corpuscular HGB Conc 29.4 g/dL (31.6-35.5); Mean Corpuscular Hemoglobin 24.3 pg (28.0-33.3); Mean Corpuscular Volume 82.7 fL (83.0-100.0); Mean Platelet Volume 11.3 fL (9.4-12.4); Monocytes # 1.2 K/mcL (0.0-1.3); Monocytes % 11.7 %; Neutrophils # 8.2 K/mcL (1.6-8.9); Platelet Count 142 K/mcL (140-400); Red Cell Distribution Width 18.4 % (11.5-14.5); Segmented Neutrophils % 78.9 %; White Blood Count 10.4 K/mcL (4.3-11.1)
[2021-12-09 02:36] LABS: Calcium 8.5 mg/dL (8.6-10.3); Magnesium 2.2 mg/dL (1.6-2.6); Phosphorous 4.6 mg/dL (2.7-4.5); Potassium 4.7 mEq/L (3.5-5.1)
[2021-12-09] MEDS: Piperacillin/Tazobactam 3.375 GM in 0.9 % Sodium Chloride Mini Bag 100 ML IVPB SCH ×2 (06:30→16:04)
[2021-12-09] MEDS: Metoprolol XL (24 HR) Succ 50 MG TAB.ER.24H PO SCH ×2 (08:13→20:30)
[2021-12-09] MEDS: allopurinoL 100 MG TABLET PO SCH (08:13)
[2021-12-09] MEDS: predniSONE 20 MG TABLET PO SCH (08:13)
[2021-12-09] MEDS: *HR* Amiodarone 200 MG TABLET PO SCH ×2 (08:13→20:30)
[2021-12-09] MEDS: Insulin LISPRO 300 UNITS/3 ML VIAL SUBQ SCH ×4 (08:13→20:31)
[2021-12-09] MEDS ORDERED: 0.9 % Sodium Chloride 250 ML IVC PRN (08:56)
[2021-12-09] MEDS ORDERED: *HR* Heparin 10,000 UNIT/10 ML VIAL IV PRN (08:56)
[2021-12-09] MEDS: Budesonide/Formoterol 160/4.5 1 PUFF INH IH SCH ×2 (10:36→19:43)
[2021-12-09] MEDS: Heparin 25,000UNIT/250ML 1/2NS 25,000 UNIT/250 ML IV.SOLN IVC SCH ×2 (13:20→18:10)
[2021-12-09] MEDS: Ergocalciferol (VIT D2) 50,000 UNIT (1.25MG) CAP PO SCH (16:05)
[2021-12-09] MEDS: hydrOXYzine pamoate 25 MG CAPSULE PO PRN (20:30)
[2021-12-09] MEDS: Insulin DETEMIR 100 UNIT/ML X5UNITS SUBQ SCH (20:30)
[2021-12-10] MEDS: Piperacillin/Tazobactam 3.375 GM in 0.9 % Sodium Chloride Mini Bag 100 ML IVPB SCH ×3 (01:27→16:28)
[2021-12-10] MEDS: Heparin 25,000UNIT/250ML 1/2NS 25,000 UNIT/250 ML IV.SOLN IVC SCH ×2 (01:44→19:02)
[2021-12-10 01:50] LABS: Basophils % 0.1 %; Mean Platelet Volume 11.7 fL (9.4-12.4)
[2021-12-10 01:52] LABS: Eosinophils # 0.2 K/mcL (0.0-0.6); Eosinophils % 1.7 %; Hematocrit 35.5 % (37.5-50.1); Hemoglobin 10.3 g/dL (12.9-16.9); Immature Granulocytes % 0.7 % (0-4); Immature Platelets 9.2 % (1.1-6.1); Lymphocytes % 10.5 %; Mean Corpuscular Hemoglobin 24.1 pg (28.0-33.3); Mean Corpuscular Volume 83.1 fL (83.0-100.0); Monocytes # 1.2 K/mcL (0.0-1.3); Monocytes % 12.2 %; Neutrophils # 7.2 K/mcL (1.6-8.9); Platelet Count 134 K/mcL (140-400); Red Blood Count 4.27 M/mcL (4.19-5.50); Red Cell Distribution Width 18.5 % (11.5-14.5); Segmented Neutrophils % 74.8 %; White Blood Count 9.6 K/mcL (4.3-11.1)
[2021-12-10 02:10] LABS: Calcium 8.3 mg/dL (8.6-10.3); Phosphorous 3.8 mg/dL (2.7-4.5); Potassium 4.2 mEq/L (3.5-5.1)
[2021-12-10] MEDS: Budesonide/Formoterol 160/4.5 1 PUFF INH IH SCH ×2 (08:20→20:15)
[2021-12-10] MEDS: allopurinoL 100 MG TABLET PO SCH (10:04)
[2021-12-10] MEDS: Metoprolol XL (24 HR) Succ 50 MG TAB.ER.24H PO SCH ×2 (10:04→21:35)
[2021-12-10] MEDS: *HR* Amiodarone 200 MG TABLET PO SCH ×2 (10:04→21:35)
[2021-12-10] MEDS: Insulin LISPRO 300 UNITS/3 ML VIAL SUBQ SCH ×4 (10:05→21:36)
[2021-12-10] MEDS: predniSONE 10 MG TABLET PO SCH (10:05)
[2021-12-10] MEDS: Albumin 25% 25gram/100mL 25 GM/100 ML IV.SOLN IVPB SCH (19:54)
[2021-12-10] MEDS: Furosemide 60 MG in 0.9 % Sodium Chloride 50 ML IV SCH (21:35)
[2021-12-10] MEDS: Insulin DETEMIR 100 UNIT/ML X5UNITS SUBQ SCH (21:36)
[2021-12-11] MEDS: Piperacillin/Tazobactam 3.375 GM in 0.9 % Sodium Chloride Mini Bag 100 ML IVPB SCH ×3 (00:40→16:15)
[2021-12-11 05:26] LABS: Basophils % 0.1 %; Eosinophils # 0.2 K/mcL (0.0-0.6); Eosinophils % 2.8 %; Hematocrit 31.8 % (37.5-50.1); Hemoglobin 9.7 g/dL (12.9-16.9); Immature Granulocytes % 1.1 % (0-4); Lymphocytes # 1.2 K/mcL (0.6-4.6); Lymphocytes % 15.1 %; Mean Corpuscular HGB Conc 30.5 g/dL (31.6-35.5); Mean Corpuscular Hemoglobin 25.1 pg (28.0-33.3); Mean Corpuscular Volume 82.4 fL (83.0-100.0); Mean Platelet Volume 11.2 fL (9.4-12.4); Monocytes # 0.8 K/mcL (0.0-1.3); Monocytes % 9.4 %; Neutrophils # 5.7 K/mcL (1.6-8.9); Platelet Count 136 K/mcL (140-400); Red Blood Count 3.86 M/mcL (4.19-5.50); Red Cell Distribution Width 18.2 % (11.5-14.5); Segmented Neutrophils % 71.5 %
[2021-12-11 05:46] LABS: Calcium 8.4 mg/dL (8.6-10.3); Phosphorous 3.1 mg/dL (2.7-4.5)
[2021-12-11] MEDS: Heparin 25,000UNIT/250ML 1/2NS 25,000 UNIT/250 ML IV.SOLN IVC SCH ×2 (06:05→12:16)
[2021-12-11] MEDS: Budesonide/Formoterol 160/4.5 1 PUFF INH IH SCH ×2 (08:03→20:15)
[2021-12-11] MEDS: Insulin LISPRO 300 UNITS/3 ML VIAL SUBQ SCH ×4 (08:49→21:27)
[2021-12-11] MEDS: Albumin 25% 25gram/100mL 25 GM/100 ML IV.SOLN IVPB SCH ×2 (10:24→20:00)
[2021-12-11] MEDS: predniSONE 10 MG TABLET PO SCH (10:25)
[2021-12-11] MEDS: Furosemide 60 MG in 0.9 % Sodium Chloride 50 ML IV SCH ×2 (10:25→21:27)
[2021-12-11] MEDS: allopurinoL 100 MG TABLET PO SCH (10:25)
[2021-12-11] MEDS: *HR* Amiodarone 200 MG TABLET PO SCH ×2 (10:25→21:26)
[2021-12-11] MEDS: Metoprolol XL (24 HR) Succ 50 MG TAB.ER.24H PO SCH ×2 (10:25→21:26)
[2021-12-11] MEDS: Insulin DETEMIR 100 UNIT/ML X5UNITS SUBQ SCH (21:26)
[2021-12-12] MEDS: Heparin 25,000UNIT/250ML 1/2NS 25,000 UNIT/250 ML IV.SOLN IVC SCH (02:44)
[2021-12-12 03:06] LABS: Basophils % 0.1 %; Eosinophils # 0.2 K/mcL (0.0-0.6); Eosinophils % 2.6 %; Hematocrit 32.5 % (37.5-50.1); Hemoglobin 9.6 g/dL (12.9-16.9); Immature Granulocytes % 1.7 % (0-4); Lymphocytes % 12.3 %; Mean Corpuscular HGB Conc 29.5 g/dL (31.6-35.5); Mean Corpuscular Hemoglobin 24.2 pg (28.0-33.3); Mean Corpuscular Volume 81.9 fL (83.0-100.0); Mean Platelet Volume 11.4 fL (9.4-12.4); Monocytes # 0.8 K/mcL (0.0-1.3); Monocytes % 9.2 %; Neutrophils # 6.3 K/mcL (1.6-8.9); Platelet Count 149 K/mcL (140-400); Red Blood Count 3.97 M/mcL (4.19-5.50); Red Cell Distribution Width 18.1 % (11.5-14.5); Segmented Neutrophils % 74.1 %; White Blood Count 8.4 K/mcL (4.3-11.1)
[2021-12-12 03:19] LABS: Calcium 9.1 mg/dL (8.6-10.3); Phosphorous 2.9 mg/dL (2.7-4.5); Potassium 4.1 mEq/L (3.5-5.1)
[2021-12-12] MEDS: Insulin LISPRO 300 UNITS/3 ML VIAL SUBQ SCH ×2 (07:45→11:37)
[2021-12-12] MEDS: allopurinoL 100 MG TABLET PO SCH (07:46)
[2021-12-12] MEDS: Metoprolol XL (24 HR) Succ 50 MG TAB.ER.24H PO SCH (07:46)
[2021-12-12] MEDS: Albumin 25% 25gram/100mL 25 GM/100 ML IV.SOLN IVPB SCH (07:46)
[2021-12-12] MEDS: *HR* Amiodarone 200 MG TABLET PO SCH (07:46)
[2021-12-12] MEDS: predniSONE 10 MG TABLET PO SCH (07:46)
[2021-12-12] MEDS: Budesonide/Formoterol 160/4.5 1 PUFF INH IH SCH (08:07)
[2021-12-12] MEDS ORDERED: Apixaban 5 MG TABLET PO SCH (10:45)
[2021-12-12] MEDS: Furosemide 60 MG in 0.9 % Sodium Chloride 50 ML IV SCH (10:53)
[2021-12-12 11:32] VITALS: BP 124/57; PULSE 108; TEMP 97.8; O2SAT 95
== END 2021-12-12 16:26 | disposition home health service (06) | DRG 871 ==
LOC: 2NNU 22:03 → EMEROOARM 22:03 → 2NNU 11-30 06:31 → SUATTDRO 11-30 08:02 → 2NNU 11-30 08:56 → 2ANU 12-04 14:59
PROVIDERS: ADMIT Internal Medicine; ATTEND Internal Medicine

== ENCOUNTER 2022-03-27 13:01 | Observation (INO) ==
[2022-03-27 13:42] LABS: Basophils # 0.1 K/mcL (0.0-0.2); Basophils % 0.6 %; Eosinophils % 0.3 %; Hematocrit 38.4 % (37.5-50.1); Hemoglobin 11.9 g/dL (12.9-16.9); Immature Granulocytes % 0.9 % (0-4); Lymphocytes # 0.7 K/mcL (0.6-4.6); Lymphocytes % 5.3 %; Mean Corpuscular Hemoglobin 26.7 pg (28.0-33.3); Mean Corpuscular Volume 86.3 fL (83.0-100.0); Mean Platelet Volume 10.1 fL (9.4-12.4); Monocytes # 0.7 K/mcL (0.0-1.3); Monocytes % 5.5 %; Neutrophils # 11.3 K/mcL (1.6-8.9); Platelet Count 237 K/mcL (140-400); Red Blood Count 4.45 M/mcL (4.19-5.50); Segmented Neutrophils % 87.4 %; White Blood Count 12.9 K/mcL (4.3-11.1)
[2022-03-27 14:28] LABS: Bilirubin,Urine Negative (Negative); Blood,Urine Trace (Negative); Clarity,Urine Clear (Clear); Color,Urine Light-Yellow (Yellow); Glucose,Urine (UA) 150 mg/dL (Normal); Hyaline Casts,Urine Few per lpf (None Seen); Ketones,Urine Negative (Negative); Leukocyte Esterase,Urine Trace (Negative); Mucus,Urine Few per lpf (None-Few); Nitrite,Urine Negative (Negative); Protein,Urine 200 mg/dL (Neg-Trace); RBC,Urine 0-3 per hpf (0-3); Specific Gravity,Urine 1.012 (1.010-1.025); Urobilinogen,Urine Normal (Normal)
[2022-03-27 14:32] LABS: Amphetamine Screen,Urine Negative ng/mL (Cutoff=1000); Barbiturate Screen,Urine Negative ng/mL (Cutoff=200); Benzodiazepines Screen,Urine Negative ng/mL (Cutoff=200); Cannabinoid Screen,Urine Negative ng/mL (Cutoff = 50); Cocaine Screen,Urine Negative ng/mL (Cutoff= 300); Opiate Screen,Urine Negative ng/mL (Cutoff=300); Phencyclidine Screen,Urine Negative ng/mL (Cutoff=25)
[2022-03-27] MEDS ORDERED: Furosemide 20 MG/2 ML VIAL IVP ONE (15:10)
[2022-03-27 15:30] LABS: Alanine Aminotransferase 17 Units/L (7-52); Albumin/Globulin Ratio 1.7 (1.1-2.2); Alkaline Phosphatase 67 Units/L (34-104); Aspartate Amino Transferase 14 Units/L (13-39); BUN/Creatinine Ratio 33 (6-26); Bilirubin,Total 0.3 mg/dL (0.3-1.0); Blood Urea Nitrogen 74 mg/dL (6-20); Carbon Dioxide 27 mEq/L (23-29); Chloride 100 mEq/L (98-107); Creatine Kinase 28 Units/L (30-223); Ethanol < 10 mg/dL (Less than 10); Globulin 2.3 g/dL (2.4-3.5); Glucose 267 mg/dL (70-105); Magnesium 1.5 mg/dL (1.6-2.6); Osmolality,Calculated 317 (280-300); Potassium 3.7 mEq/L (3.5-5.1); Sodium 138 mEq/L (136-145); Total Protein 6.3 g/dL (6.4-8.9); Troponin I < 0.03 ng/mL (< 0.04); eGFR For African Americans 37 (> 60); eGFR For Non-African Americans 30 (> 60)
[2022-03-27] MEDS ORDERED: Naloxone 0.4 MG/ML INJ IVP PRN (16:54)
[2022-03-28 04:54] LABS: Basophils # 0.1 K/mcL (0.0-0.2); Basophils % 0.7 %; Eosinophils # 0.2 K/mcL (0.0-0.6); Hematocrit 40.3 % (37.5-50.1); Hemoglobin 12.4 g/dL (12.9-16.9); Immature Granulocytes % 0.7 % (0-4); Lymphocytes # 1.4 K/mcL (0.6-4.6); Lymphocytes % 11.6 %; Mean Corpuscular HGB Conc 30.8 g/dL (31.6-35.5); Mean Corpuscular Hemoglobin 26.5 pg (28.0-33.3); Mean Corpuscular Volume 86.1 fL (83.0-100.0); Mean Platelet Volume 10.4 fL (9.4-12.4); Monocytes # 1.2 K/mcL (0.0-1.3); Monocytes % 9.8 %; Neutrophils # 9.2 K/mcL (1.6-8.9); Platelet Count 277 K/mcL (140-400); Red Blood Count 4.68 M/mcL (4.19-5.50); Red Cell Distribution Width 18.2 % (11.5-14.5); Segmented Neutrophils % 75.2 %; White Blood Count 12.3 K/mcL (4.3-11.1)
[2022-03-28 05:09] LABS: Calcium 9.4 mg/dL (8.6-10.3); Potassium 3.5 mEq/L (3.5-5.1)
[2022-03-28] MEDS ORDERED: Albuterol 2.5 MG/3 ML NEBULIZER IH PRN (07:23)
[2022-03-28] MEDS ORDERED: hydrOXYzine pamoate 25 MG CAPSULE PO PRN (07:23)
[2022-03-28] MEDS: amLODIPine 5 MG TABLET PO SCH (08:08)
[2022-03-28] MEDS: lisinopriL 20 MG TABLET PO SCH (08:08)
[2022-03-28] MEDS: allopurinoL 100 MG TABLET PO SCH (08:08)
[2022-03-28] MEDS: *HR* Amiodarone 200 MG TABLET PO SCH ×2 (08:08→20:57)
[2022-03-28] MEDS: Apixaban 5 MG TABLET PO SCH ×2 (08:08→20:57)
[2022-03-28] MEDS: Furosemide 40 MG TABLET PO SCH ×2 (08:10→15:43)
[2022-03-28] MEDS: Roflumilast [Daliresp] 500 MCG Tablet PO SCH (08:13)
[2022-03-28] MEDS ORDERED: 0.9 % Sodium Chloride 250 ML IVC PRN (09:27)
[2022-03-28] MEDS ORDERED: 0.9 % Sodium Chloride 2,000 ML PRIME SCH (09:30)
[2022-03-28] MEDS ORDERED: *HR* Heparin 10,000 UNIT/10 ML VIAL IV PRN (09:32)
[2022-03-28] MEDS: Budesonide/Formoterol 160/4.5 1 PUFF INH IH SCH ×2 (09:47→22:47)
[2022-03-28 14:29] LABS: Hepatitis B Surface Antibody < 3.10 mIU/mL
[2022-03-28 14:39] LABS: Hepatitis B Surface Antigen Nonreactive (Nonreactive)
[2022-03-28] MEDS ORDERED: Cefepime HCl 1,000 MG in 0.9 % Sodium Chloride 10 ML IVP SCH ×2 (16:00→20:00)
[2022-03-29] MEDS ORDERED: *HR* HYDROcodone/Acet 5/325 mg TABLET PO ONE (03:39)
[2022-03-29 04:39] LABS: Basophils # 0.1 K/mcL (0.0-0.2); Basophils % 0.8 %; Eosinophils # 0.4 K/mcL (0.0-0.6); Eosinophils % 3.2 %; Hematocrit 39.3 % (37.5-50.1); Hemoglobin 12.1 g/dL (12.9-16.9); Immature Granulocytes % 1.3 % (0-4); Lymphocytes # 1.2 K/mcL (0.6-4.6); Lymphocytes % 10.1 %; Mean Corpuscular HGB Conc 30.8 g/dL (31.6-35.5); Mean Corpuscular Hemoglobin 26.5 pg (28.0-33.3); Mean Corpuscular Volume 86.2 fL (83.0-100.0); Mean Platelet Volume 9.9 fL (9.4-12.4); Monocytes # 1.1 K/mcL (0.0-1.3); Monocytes % 9.4 %; Platelet Count 195 K/mcL (140-400); Red Blood Count 4.56 M/mcL (4.19-5.50); Red Cell Distribution Width 18.4 % (11.5-14.5); Segmented Neutrophils % 75.2 %
[2022-03-29 05:01] LABS: Calcium 8.9 mg/dL (8.6-10.3); Magnesium 1.9 mg/dL (1.6-2.6); Potassium 3.7 mEq/L (3.5-5.1)
[2022-03-29] MEDS: Budesonide/Formoterol 160/4.5 1 PUFF INH IH SCH (07:43)
[2022-03-29] MEDS: Roflumilast [Daliresp] 500 MCG Tablet PO SCH (07:48)
[2022-03-29] MEDS: Furosemide 40 MG TABLET PO SCH ×2 (08:51→16:22)
[2022-03-29] MEDS: lisinopriL 20 MG TABLET PO SCH (08:51)
[2022-03-29] MEDS: allopurinoL 100 MG TABLET PO SCH (08:51)
[2022-03-29] MEDS: Apixaban 5 MG TABLET PO SCH (08:51)
[2022-03-29] MEDS: *HR* Amiodarone 200 MG TABLET PO SCH (08:51)
[2022-03-29] MEDS: amLODIPine 5 MG TABLET PO SCH (08:51)
[2022-03-29 10:56] VITALS: TEMP 98.1; O2SAT 96
[2022-03-29] MEDS ORDERED: *HR* HYDROcodone/Acet 5/325 mg TABLET PO PRN (13:05)
[2022-03-29 15:30] VITALS: BP 157/50; PULSE 90
== END 2022-03-29 17:55 | disposition home health service (06) ==
LOC: EMEROOARM 13:01 → 2ANU 13:01 → SUATTDRO 18:12 → 2ANU 20:10
PROVIDERS: ADMIT Pharmacist; ATTEND Internal Medicine